=== PATIENT | female | born 1970 | race Caucasian/White ===

== ENCOUNTER 2018-01-19 21:35 | Emergency (ER) | payer BC ==
[2018-01-20] MEDS ORDERED: Ondansetron INJ* 2 MG/ML VIAL IV ONE (01:41)
[2018-01-20] MEDS ORDERED: Ketorolac INJ* 30 MG/ML 1 ML VIAL IV PUSH ONE (01:41)
[2018-01-20 01:42] LABS: ABS Basophils 0.1 10^3/ul (0-0.2); ABS Eosinophils 0 10^3/ul (0-0.6); ABS Lymphocytes 1.8 10^3/ul (1.0-4.8); ABS Monocytes 1.1 10^3/ul (0-0.8); ABS Neutrophils 7.6 10^3/ul (1.5-7.7); ABS Nucleated RBC 0 10^3/ul; Eosinophil % 0.2 % (0-6); Hematocrit 36 % (35-47); Lymphocyte % 16.6 % (25-47); Mean Corpuscular HGB Conc 31 g/dl (31-36); Mean Corpuscular Hemoglobin 25 pg (27-31); Mean Corpuscular Volume 81 fL (80-97); Mean Platelet Volume 8 um3 (7.4-10.4); Nucleated Red Blood Cells % 0.1; Platelet Count 406 10^3/ul (150-450); Red Blood Count 4.38 10^6/ul (4.0-5.4); Red Cell Distribution Width 23 % (10.5-15); White Blood Count 10.6 10^3/ul (3.5-10.8)
[2018-01-20 01:43] LABS: EGFR Non-African American 74.7 (>60)
[2018-01-20] MEDS ORDERED: Iohexol 300* (CONTRAST) 10 ML SDV IV ONE (02:06)
[2018-01-20 04:06] VITALS: BP 118/71
--- NOTE | 2018-01-20 06:08 | ED ---
Hanny Castillo Nilda, scribed for Chester Ray MD on 01/20/18 at 0243 . Abdominal Pain/Female - HPI Summary HPI Summary: This patient is a 47 year old F presenting to [facility] with a chief complaint of constant diffuse abdominal pain and bloating for the past 6 days that worsened last night. The patient rates the pain 4/10 in severity. Symptoms aggravated and alleviated by nothing. Patient reports nausea, intermittent mild edema (not currently present), and recent menstrual spotting. Patient denies abnormal BM, fever, and dysuria. Allergies to Cephalexin and Meperidine. - History of Current Complaint Chief Complaint: EDAbdPain Stated Complaint: ABD PAIN Time Seen by Provider: 01/20/18 01:36 Hx Obtained From: Patient Hx Last Menstrual Period: May 04 Onset/Duration: Sudden Onset, Lasting Days, Still Present Timing: Constant Severity Currently: Moderate Pain Intensity: 4 Pain Scale Used: 0-10 Numeric Location: Diffuse Aggravating Factor(s): Nothing Alleviating Factor(s): Nothing Associated Signs and Symptoms: Positive: Other: - nausea, intermittent mild edema (not currently present), and recent menstrual spotting. Patient denies abnormal BM, fever, and dysuria. Allergies/Adverse Reactions: Allergies Allergy/AdvReac Type Severity Reaction Status Date / Time MS Cephalexin [Cephalexin] Allergy Nausea And Verified 01/19/18 22:16 Vomiting MS Meperidine Allergy Unknown Verified 01/19/18 22:16 [From Demerol HCl] Reaction Details bee stings Allergy Mild Difficulty Uncoded 01/19/18 22:16 Breathing PMH/Surg Hx/FS Hx/Imm Hx Endocrine/Hematology History: Reports: Other Endocrine/Hematological Disorders - Parathyroidectomy Denies: Hx Diabetes, Hx Systemic Lupus Erythematosus, Hx Sickle Cell Disease , Hx Thyroid Disease Cardiovascular History: Reports: Hx Hypertension Denies: Hx Congestive Heart Failure, Other Cardiovascular Problems/Disorders Respiratory History: Denies: Hx Asthma, Hx Chronic Obstructive Pulmonary Disease (COPD) GI History: Reports: Hx Gastroesophageal Reflux Disease, Hx Hiatal Hernia, Other GI Disorders - 2 weeks ago ruq pain " stabbing" ,us neg per pt,? hernia per pt Denies: Hx Ulcer History: Reports: Hx Kidney Stones, Hx Renal Disease - stones resolved, Other Problems/Disorders - stones resolved per pt Denies: Hx Dialysis Musculoskeletal History: Denies: Hx Rheumatoid Arthritis, Hx Osteoporosis, Other Musculoskeletal History Sensory History: Denies: Hx Contacts or Glasses, Hx Hearing Aid Opthamlomology History: Denies: Hx Contacts or Glasses Neurological History: Denies: Other Neuro Impairments/Disorders - Cancer History Hx Chemotherapy: No Hx Radiation Therapy: No - Surgical History Surgery Procedure, Year, and Place: tubal;. cyst removed from throat;. Renal stent;. Parathyroidectomy;. wisdom teeth Hx Anesthesia Reactions: No Infectious Disease History: No Infectious Disease History: Denies: Hx Clostridium Difficile, Hx Hepatitis, Hx Human Immunodeficiency Virus (HIV), Hx of Known/Suspected MRSA, Hx Shingles, Hx Tuberculosis, History Other Infectious Disease, Traveled Outside the [place] in Last 30 Days - Family History Known Family History: Positive: Other - negative ovarian and endometrium issues - Social History Alcohol Use: Rare Substance Use Type: Reports: None Smoking Status (MU): Light Every Day Tobacco Smoker Type: Cigarettes Amount Used/How Often: 5 cigs/day Length of Time of Smoking/Using Tobacco: 22 years Have You Smoked in the Last Year: Yes Review of Systems Negative: Fever Positive: Abdominal Pain - with bloating, Nausea, Other - negative abnormal BM Positive: other - recent menstrual spotting. Negative: dysuria Positive: Edema All Other Systems Reviewed And Are Negative: Yes Physical Exam - Summary Physical Exam Summary: Appearance: Well appearing, no pain distress, morbidly obese Skin: warm, dry, reflects adequate perfusion, Hirsute Head/face: normal Eyes: EOMI, LORNA ENT: normal Neck: supple, non-tender Respiratory: Fine wheeze in right base Cardiovascular: RRR, pulses symmetrical Abdomen: non-tender, soft, no masses Bowel sounds: present Back: No CVA tenderness Musculoskeletal: normal, strength/ROM intact Neuro: normal, sensory motor intact, A&Ox3 Triage Information Reviewed: Yes Vital Signs On Initial Exam: Initial Vitals Temp Pulse Resp BP Pulse Ox 98.5 F 106 16 155/103 98 01/19/18 22:10 01/19/18 22:10 01/19/18 22:10 01/19/18 22:10 01/19/18 22:10 Vital Signs Reviewed: Yes Diagnostics - Vital Signs Vital Signs Temp Pulse Resp BP Pulse Ox 01/20/18 01:12 92 17 165/93 97 01/20/18 01:00 98 18 165/93 97 01/20/18 00:15 98.1 F 100 16 148/97 97 01/19/18 22:10 98.5 F 106 16 155/103 98 - Laboratory Lab Results: Lab Results 01/20/18 01/20/18 01/20/18 Range/Units 01:05 01:05 01:05 WBC 10.6 (3.5-10.8) 10^3/ul RBC 4.38 (4.0-5.4) 10^6/ul Hgb 11.0 L (12.0-16.0) g/dl Hct 36 (35-47) % MCV 81 (80-97) fL MCH 25 L (27-31) pg MCHC 31 (31-36) g/dl RDW 23 H (10.5-15) % Plt Count 406 (150-450) 10^3/ul MPV 8 (7.4-10.4) um3 Neut % (Auto) 71.6 (38-83) % Lymph % (Auto) 16.6 L (25-47) % [place] % (Auto) 10.4 H (1-9) % Eos % (Auto) 0.2 (0-6) % Baso % (Auto) 1.2 (0-2) % Absolute Neuts (auto) 7.6 (1.5-7.7) 10^3/ul Absolute Lymphs (auto) 1.8 (1.0-4.8) 10^3/ul Absolute Monos (auto) 1.1 H (0-0.8) 10^3/ul Absolute Eos (auto) 0 (0-0.6) 10^3/ul Absolute Basos (auto) 0.1 (0-0.2) 10^3/ul Absolute Nucleated RBC 0 10^3/ul Nucleated RBC % 0.1 Sodium 132 L (133-145) mmol/L Potassium 3.2 L (3.5-5.0) mmol/L Chloride 92 L (101-111) mmol/L Carbon Dioxide 25 (22-32) mmol/L Anion Gap 15 H (2-11) mmol/L BUN 7 (6-24) mg/dL Creatinine 0.82 (0.51-0.95) mg/dL Est GFR ( Amer) 96.1 (>60) Est GFR (Non-Af Amer) 74.7 (>60) BUN/Creatinine Ratio 8.5 (8-20) Glucose 93 (70-100) mg/dL Lactic Acid 1.1 (0.5-2.0) mmol/L Calcium 9.7 (8.6-10.3) mg/dL Total Bilirubin 1.10 H (0.2-1.0) mg/dL AST 156 H (13-39) U/L ALT 88 H (7-52) U/L Alkaline Phosphatase 179 H (34-104) U/L C-Reactive Protein 9.79 H (< 5.00) mg/L Total Protein 8.6 (6.4-8.9) g/dL Albumin 4.1 (3.2-5.2) g/dL Globulin 4.5 H (2-4) g/dL Albumin/Globulin Ratio 0.9 L (1-3) Lipase 56 (11.0-82.0) U/L Result Diagrams: 01/20/18 01:05 01/20/18 01:05 Lab Statement: Any lab studies that have been ordered have been reviewed, and results considered in the medical decision making process. - CT Abd/Pel CT Interpretation Completed By: Radiologist - CT Abd/Pel, per radiologist, reveals no bowel obstruction, free air, or free fluid. Negative for diverticulitis or colitis. Normal appendix. No fatty infiltration of the hannah of the terminal ileum and cecum. Hiatal hernia noted. Normal kidneys urinary tract and urinary bladder. Enlarged fatty liver. Liver was not fatty on the prior scan. Normal spleen. No obvious gallbladder abnormalities. Normal pancreas. Normal adrenal glands. There is a 2.7 cm left adnexal cyst. Clump of left adnexal calcium is noted and was present previously. Osseous structures are intact. Dr. Ray has reviewed this report. Re-Evaluation - Re-Evaluation First Eval Re-Evaluation Time: 03:50 Comment: Reviewed labs with pt. Liver enzymes are elevated. Pt states shes a regular wine drinker and had big drinking weekend, and has felt this way ever since. Pt is shocked and states she will stop drinking. Liver findings is consistent with alcoholic hepatitis. Abdominal Pain Fem Course/Dx - Course Course Of Treatment: Liver enzymes are elevated. On re-eval, pt states shes a regular wine drinker and had big drinking weekend, and has felt this way ever since. Pt is shocked and states she will stop drinking. Liver findings are consistent with alcoholic hepatitis. CT Abd/Pel, per radiologist, reveals enlarged fatty liver. Dr. Ray has reviewed this report. - Diagnoses Differential Diagnosis: Positive: Appendicitis, Bowel Obstruction, Constipation , Gall Bladder Disease, Irritable Bowel Syndrome, Pancreatitis Provider Diagnoses: Alcoholic hepatitis, Fatty liver Discharge - Discharge Plan Condition: Good Disposition: HOME Prescriptions: Hyoscyamine Sulfate 0.125 mg PO TID PRN #40 tab.rapdis PRN Reason: cramping Metoclopramide TAB* [Reglan TAB*] 10 mg PO Q6H #40 tab Patient Education Materials: Alcoholic Hepatitis (ED) Referrals: Tabby Borrego NP [Primary Care Provider] - Additional Instructions: STOP drinking immediately. Call your doctor in the morning. You will need following of your liver enzymes, additional testing and likely a gallbladder ultrasound. Return if worse, pain, vomiting or other concerns as discussed. The documentation as recorded by the Hanny ayers Nilda accurately reflects the service I personally performed and the decisions made by me, Chester Ray MD.
--- NOTE | 2018-01-20 08:09 | RAD ---
INDICATION: Perimenopausal abdominal distention and fullness. COMPARISON: Comparison is made with a prior study from every 2013. TECHNIQUE: A CT scan of the abdomen and pelvis was performed with intravenous and without oral contrast following intravenous injection of 125 ml of Omnipaque 300 nonionic contrast. Contiguous axial sections were obtained from the lung bases through the symphysis pubis. Images were reconstructed in the coronal and sagittal planes. FINDINGS: The lung bases are clear. No pleural effusion is present. The liver is moderately enlarged and decreased in attenuation consistent with fatty infiltration. No calcified gallstones are seen. The spleen appears to be within normal limits in size. The pancreas appears to be within normal limits. The kidneys and adrenal glands are normal in size. No hydronephrosis is seen. No significant focal renal abnormality is seen. The aorta is normal in caliber and demonstrates homogeneous contrast opacification. No significant enlarged retroperitoneal lymph nodes are seen. There is a moderate size hiatal hernia. The stomach, small and large bowel appear nondistended. The appendix is within normal limits. There is mild descending and sigmoid diverticulosis without evidence for diverticulitis. The uterus is anteverted and normal in size. There are bilateral adnexal cysts measuring 2.3 x 1.7 cm on the right and 2.8 x 2.0 cm on the left. There are coarse calcifications associated with the ovary laterally which are unchanged from the prior study. No free intraperitoneal air or fluid is seen. No significant focal osseous abnormality is seen. IMPRESSION: 1. NO EVIDENCE FOR ACUTE FINDING OR CAUSE FOR THE PATIENT'S ABDOMINAL SYMPTOMS. 2. HEPATOMEGALY AND HEPATIC STEATOSIS. 3. BILATERAL ADNEXAL CYSTS. THE OVARY ON THE LEFT SIDE IS ASSOCIATED WITH AN AREA OF COARSE CALCIFICATION WHICH APPEARS UNCHANGED FROM THE PRIOR STUDY. 4. MODERATE SIZE HIATAL HERNIA.
== END 2018-01-20 04:06 | disposition home or self-care (01) ==
LOC: ED 21:35
DX: K70.10 Alcoholic hepatitis without ascites (principal); K76.0 Fatty (change of) liver, not elsewhere classified; F17.210 Nicotine dependence, cigarettes, uncomplicated
CPT/HCPCS: 36415; 74177; 80053; 83605; 83690; 84702; 85025; 86140; 87040; 96374; 96375; 99283; J1885; J2405; Q9967

== ENCOUNTER 2018-02-16 08:07 | Emergency (ER) | payer BC ==
--- OUTSIDE RECORDS SUMMARY | 2018-02-16 08:13 | XMS REPORT ---
:1970 External Reference #:[id number] Author Organization [employer] Address [address] [address] Phone [phone] Care Team Providers Name Role Phone Cindy Rob MD Primary Care Physician Unavailable Payers Type Date Identification Numbers Payment Provider Subscriber Commercial Effective: Policy Number: [id number] BS James Oliver 2013 Expires: 2017 PayID: [id number] [address] [address] JIMI Norris [address] Commercial Effective: Policy Number: [employer] Medicaid Violette Oliver 2013 [id number] Expires: 2015 PayID: [id number] [address] [address] [place] [address] Medigap Part B Policy Number: [id number] BS Facets Ty Oliver PayID: [id number] [address] [address] JIMI Norris [address] Problems Date Description Provider Status Onset: 10/12/2013 Electrocardiogram abnormal Tomy Bailey M.D. Onset: 10/12/2013 Preoperative cardiovascular Tomy Bailey examination Jonel Onset: 10/12/2013 Benign essential hypertension Tomy Bailey M.D. Onset: 10/12/2013 Obesity Tomy Bailey M.D. Onset: 03/28/2016 Essential hypertension Natty Fontana M.D. Active Onset: 04/29/2016 Irregular menstruation, unspecified Natty Fontana M.D. Active Onset: 04/29/2016 Anemia Natty Fontana M.D. Active Onset: 04/29/2016 Tobacco user Natty Fontana M.D. Active Onset: 04/29/2016 Anxiety state Natty Fontana M.D. Active Family History Date Family Member(s) Problem(s) Comments Father Alive And Well Mother PA Mother cath with stents First Son Aortic Stenosis First Son Hyperthyroidism First Son leasions on brain autism, bipolar Second Son Alive And Well First Daughter Alive And Well Siblings 5 siblings brother with HTN, all others healthy Paternal Grandfather due to brain () - aneurysm Paternal Grandmother due to Alzheimer's () Disease Maternal Grandfather due to Stroke () Maternal Grandmother 97 live on own Social History Type Date Description Comments Marital Status Lives With Children Lives With Spouse 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 every day ETOH Use Rarely consumes alcohol Recreational Drug Use Current Drug User occ, at [employer] Pot Smoking Patient is a current smoker, smokes every day Daily Caffeine Consumes on average 3 cups of regular coffee per day Exercise Type/Frequency Exercises regularly 5 times a week Allergies, Adverse Reactions, Alerts Date Description Reaction Status Severity Comments 10/11/2013 Demerol loss of hearing and vision active 03/28/2016 Ciprofloxacin active Medications Medication Date Status Form Strength Qnty SIG Indications Ordering Provider Celecoxib 02/02/ Active Capsules 200mg 30caps 1 by M54.5 Tabby 2017 mouth Varn, N.P. every day Fluticasone 12/02/ Active Suspension 50mcg/Act 16unit 2 sprays R42 Mic Propionate 2018 s each MATIAS Foreman nostril qd. Trazodone HCL 06/27/ Active Tablets 50mg 30tabs ( Not Tabby 2015 Taking) 1 Varn, N.P. tablet at bedtime as needed Bupropion HCL 03/28/ Active Tablets ER 150mg 30tabs (Not F17.210 Tabby ER (SR) 2015 12HR Taking) 1 Varn, N.P. by mouth once a day Atenolol 03/28/ Active Tablets 50mg 30tabs 1 by Mic 2015 mouth MATIAS Foreman every day Claritin / Active Capsules 10mg 30caps 1 tablet Tabby 0000 daily as Varn, N.P. needed Omeprazole / Active Capsules DR 40mg 30caps 1 by Tabby 0000 mouth Varn, N.P. every day Multi Vitamin 00/ Active Tablets 30tabs one po Tabby Daily 0000 daily Varn, N.P. Ventolin HFA / Active Aerosol 108(90Base 8gm inhale Cindy 0000 ) mcg/Act two puffs Cotton, by mouth M.D. four times a day as needed Potassium 12/11/ Hx Tablets ER 20Meq 14tabs 1 by Mic Chloride ER 2017 - mouth MATIAS Foreman 02/02/ every day 2018 x 2 weeks Amoxicillin/C 12/02/ Hx Tablets 875-125mg 20tabs take one J01.90 Mic lavulanate 2017 - tablet MATIAS Foreman Potassium 12/12/ q12 hours 2018 for 10 days Vitamin D3 04/22/ Hx Capsules 40690Goni 8caps 1 tab by Natty 2015 - mouth Fontana, 02/02/ once per M.D. 2018 week, 8 weeks, then follow up for blood test Atenolol / Hx Tablets 25mg 90tabs 1 po qd Unknown 0000 - 2015 Nasacort / Hx Aerosol 55mcg/Act 10.800 1 spray Tabby Allergy 24HR 0000 - ml both Varn, N.P. 2017 once daily Vital Signs Date Vital Result Comment 02/02/2018 Weight 204.50 lb Heart Rate 89 /min BP Systolic 134 mmHg BP Diastolic 80 mmHg Body Temperature 99.4 F O2 % BldC Oximetry 93 % 12/02/2017 Height 61 inches 5'1" Weight 208.00 lb Heart Rate 92 /min BP Systolic 130 mmHg BP Diastolic 90 mmHg Body Temperature 97.6 F O2 % BldC Oximetry 97 % BMI (Body Mass Index) 39.3 kg/m2 06/04/2016 Weight 226.00 lb Heart Rate 74 /min BP Systolic Sitting 126 mmHg BP Diastolic Sitting 84 mmHg Respiratory Rate 15 /min Body Temperature 98.0 F O2 % BldC Oximetry 98 % 03/28/2016 Weight 235.00 lb Heart Rate 76 /min BP Systolic Sitting 157 mmHg BP Diastolic Sitting 100 mmHg Body Temperature 98.5 F 10/12/2013 Height 61 inches 5'1" Weight 205.00 lb Heart Rate 84 /min BP Systolic Sitting 130 mmHg BP Diastolic Sitting 84 mmHg Respiratory Rate 20 /min BMI (Body Mass Index) 38.7 kg/m2 Results Test Date Test Result H/L Range Note Laboratory test finding 01/20/2018 Blood Culture SEE RESULT BELOW 1 Comp Metabolic Panel 01/20/2018 Sodium 132 mmol/L Low 133-145 Potassium 3.2 mmol/L Low 3.5-5.0 Chloride 92 mmol/L Low 101-111 Co2 Carbon Dioxide 25 mmol/L 22-32 Anion Gap 15 mmol/L High 2-11 Glucose 93 mg/dL 70-100 Blood Urea Nitrogen 7 mg/dL 6-24 Creatinine 0.82 mg/dL 0.51-0.95 BUN/Creatinine Ratio 8.5 8-20 Calcium 9.7 mg/dL 8.6-10.3 Total Protein 8.6 g/dL 6.4-8.9 Albumin 4.1 g/dL 3.2-5.2 Globulin 4.5 g/dL High 2-4 Albumin/Globulin Ratio 0.9 Low 1-3 Total Bilirubin 1.10 mg/dL High 0.2-1.0 Alkaline Phosphatase 179 U/L High 34-104 Alt 88 U/L High 7-52 Ast 156 U/L High 13-39 Egfr Non- 74.7 >60 Egfr 96.1 >60 2 Laboratory test finding 01/20/2018 Lipase 56 U/L 11.0-82.0 C Reactive Protein 9.79 mg/L High < 5.00 3 CBC Auto Diff 01/20/2018 White Blood Count 10.6 10^3/uL 3.5-10.8 Red Blood Count 4.38 10^6/uL 4.0-5.4 Hemoglobin 11.0 g/dL Low 12.0-16.0 Hematocrit 36 % 35-47 Mean Corpuscular Volume 81 fL 80-97 Mean Corpuscular Hemoglobin 25 pg Low 27-31 Mean Corpuscular HGB Conc 31 g/dL 31-36 Red Cell Distribution Width 23 % High 10.5-15 4 Platelet Count 406 10^3/uL 150-450 Mean Platelet Volume 8 um3 7.4-10.4 Abs Neutrophils 7.6 10^3/uL 1.5-7.7 Abs Lymphocytes 1.8 10^3/uL 1.0-4.8 Abs Monocytes 1.1 10^3/uL High 0-0.8 Abs Eosinophils 0 10^3/uL 0-0.6 Abs Basophils 0.1 10^3/uL 0-0.2 Abs Nucleated RBC 0 10^3/uL Granulocyte % 71.6 % 38-83 Lymphocyte % 16.6 % Low 25-47 Monocyte % 10.4 % High 1-9 Eosinophil % 0.2 % 0-6 Basophil % 1.2 % 0-2 Nucleated Red Blood Cells % 0.1 Laboratory test finding 01/20/2018 Lactic Acid 1.1 mmol/L 0.5-2.0 5 HCG < 0.60 mIU/mL 6 Urine Culture And Sensitivities 12/07/2017 Urine Culture SEE RESULT BELOW 7 Laboratory test finding 12/07/2017 Pathologist Review (SEE NOTE) 8 Cell Morphology 12/07/2017 Anisocytosis 1+ Target Cells 1+ Stomatocytes 3+ Urinalysis Profile 12/07/2017 Urine Color Raegan Urine Appearance Cloudy Urine Specific [place] 1.015 1.010-1.030 Urine pH 6.0 5-9 Urine Urobilinogen Positive Negative Urine Ketones 1+ Negative Urine Protein 2+(100 mg/dL) Negative Urine Leukocytes 1+ Negative Urine Blood Negative Negative Urine Nitrite Negative Negative Urine Bilirubin 1+ Negative Urine Glucose 1+(50 mg/dL) Negative Urine White Blood Cell 2+(11-20/hpf) Absent Urine Red Blood Cell 2+(6-10/hpf) Absent Urine Bacteria Absent Absent Urine Squamous Epithelial Cell Present Absent Urine Transitional Epithelial Present Absent Urine Hyaline Casts Present Absent Lipid Profile (Trig/Chol/HDL) 12/07/2017 Triglycerides 105 mg/dL 9 Cholesterol 173 mg/dL 10 HDL Cholesterol 49.3 mg/dL 11 LDL Cholesterol 103 mg/dL 12 Laboratory test finding 12/07/2017 TSH (Thyroid Stim 2.60 mcIU/mL 0.34- 5.60 13 Horm) Comp Metabolic Panel 12/07/2017 Sodium 132 mmol/L Low 133-145 Potassium 3.0 mmol/L Low 3.5-5.0 Chloride 86 mmol/L Low 101-111 Co2 Carbon Dioxide 31 mmol/L 22-32 Anion Gap 15 mmol/L High 2-11 Glucose 97 mg/dL 70-100 Blood Urea Nitrogen 7 mg/dL 6-24 Creatinine 0.53 mg/dL 0.51-0.95 BUN/Creatinine Ratio 13.2 8-20 Calcium 9.4 mg/dL 8.6-10.3 Total Protein 7.4 g/dL 6.4-8.9 Albumin 3.8 g/dL 3.2-5.2 Globulin 3.6 g/dL 2-4 Albumin/Globulin Ratio 1.1 1-3 Total Bilirubin 1.40 mg/dL High 0.2-1.0 Alkaline Phosphatase 217 U/L High 34-104 Alt 45 U/L 7-52 Ast 142 U/L High 13-39 Egfr Non- 123.6 >60 Egfr 159.0 >60 14 CBC Auto Diff 12/07/2017 White Blood Count 11.3 10^3/uL High 3.5-10.8 Red Blood Count 4.70 10^6/uL 4.0-5.4 Hemoglobin 11.6 g/dL Low 12.0-16.0 Hematocrit 38 % 35-47 Mean Corpuscular Volume 80 fL 80-97 Mean Corpuscular Hemoglobin 25 pg Low 27-31 Mean Corpuscular HGB Conc 31 g/dL 31-36 Red Cell Distribution Width 27 % High 10.5-15 Platelet Count 423 10^3/uL 150-450 Mean Platelet Volume 8 um3 7.4-10.4 Abs Neutrophils 9.2 10^3/uL High 1.5-7.7 Abs Lymphocytes 1.3 10^3/uL 1.0-4.8 Abs Monocytes 0.7 10^3/uL 0-0.8 Abs Eosinophils 0.1 10^3/uL 0-0.6 Abs Basophils 0 10^3/uL 0-0.2 Abs Nucleated RBC 0 10^3/uL Granulocyte % 81.5 % 38-83 Lymphocyte % 11.2 % Low 25-47 Monocyte % 6.6 % 1-9 Eosinophil % 0.6 % 0-6 Basophil % 0.1 % 0-2 Nucleated Red Blood Cells % 0.1 Laboratory test finding 04/22/2016 Vitamin D Total 25(Oh) 11.9 ng/mL Low 30-50 Comp Metabolic Panel 04/22/2016 Sodium 138 mmol/L 133-145 Potassium 3.7 mmol/L 3.5-5.0 Chloride 103 mmol/L 101-111 Co2 Carbon Dioxide 26 mmol/L 22-32 Anion Gap 9 mmol/L 2-11 Glucose 99 mg/dL 70-100 Blood Urea Nitrogen 8 mg/dL 6-24 Creatinine 0.89 mg/dL 0.51-0.95 BUN/Creatinine Ratio 9.0 8-20 Calcium 9.4 mg/dL 8.6-10.3 Total Protein 7.2 g/dL 6.4-8.9 Albumin 4.0 g/dL 3.2-5.2 Globulin 3.2 g/dL 2-4 Albumin/Globulin Ratio 1.3 1-3 Total Bilirubin 0.60 mg/dL 0.2-1.0 Alkaline Phosphatase 83 U/L 34-104 Alt 29 U/L 7-52 Ast 28 U/L 13-39 Egfr Non- 68.6 >60 Egfr 88.2 >60 15 Lipid Profile (Trig/Chol/HDL) 04/22/2016 Triglycerides 125 mg/dL 16 Cholesterol 160 mg/dL 17 HDL Cholesterol 40.5 mg/dL 18 LDL Cholesterol 95 mg/dL 19 CBC Auto Diff 04/22/2016 White Blood Count 7.3 10^3/uL 3.5-10.8 Red Blood Count 5.05 10^6/uL 4.0-5.4 Hemoglobin 12.5 g/dL 12.0-16.0 Hematocrit 40 % 35-47 Mean Corpuscular Volume 79 fL Low 80-97 Mean Corpuscular Hemoglobin 25 pg Low 27-31 Mean Corpuscular HGB Conc 31 g/dL 31-36 Red Cell Distribution Width 19 % High 10.5-15 Platelet Count 323 10^3/uL 150-450 Mean Platelet Volume 9 um3 7.4-10.4 Abs Neutrophils 5.1 10^3/uL 1.5-7.7 Abs Lymphocytes 1.4 10^3/uL 1.0-4.8 Abs Monocytes 0.7 10^3/uL 0-0.8 Abs Eosinophils 0.1 10^3/uL 0-0.6 Abs Basophils 0.1 10^3/uL 0-0.2 Abs Nucleated RBC 0.01 10^3/uL Granulocyte % 70.1 % 38-83 Lymphocyte % 18.5 % Low 25-47 Monocyte % 9.0 % 1-9 Eosinophil % 1.2 % 0-6 Basophil % 1.2 % 0-2 Nucleated Red Blood Cells % 0.1 Laboratory test finding 04/22/2016 TSH (Thyroid Stim Horm) 2.69 ?IU/mL 0.34-5.60 Free T4 (Free Thyroxine) 0.94 ng/dL 0.61-1.12 1 SEE RESULT BELOW Name: VIOLETTE OLIVER : [address]: Chester Ray MD Acct: [id number] Unit: [id number] AGE: 47 Location: ED Re01/19/18 SEX: F Status: DEP ER SPEC: [id number] ANTONIA: 01/20/18-[address]: Brandy BARRERA REQ: [id number] RECD: 01/20/18 STATUS: ZAY VARGAS DR: Chester Borrego BARK TANNER _ SOURCE: BLOOD,VENO SPDESC: ORDERED: Blood Cult Procedure Result Reported Site Aerobic Culture Bottle Final 01/25/18- 0145 ML No Growth Day 5 Anaerobic Culture Bottle Final 01/25/18- 0142 ML No Growth Day 5 * ML - MAIN LAB ([facility]) . END OF REPORT * ML=Testing performed at Main Lab DEPARTMENT OF PATHOLOGY, [address] [place] [address] Jamie Gustafson M.D. Director [facility] # [id number] 2 Because ethnic data is not always readily available, this report includes an eGFR for both -Americans and non- Americans. The National Kidney Disease Education Program (NKDEP) does not endorse the use of the MDRD equation for patients that are not between the ages of 18 and 70, are , have extremes of body size, muscle mass, or nutritional status, or are non- or non-. According to the National Kidney Foundation, irrespective of diagnosis, the stage of the disease is based on the level of kidney function: Stage Description GFR(mL/min/1.73 m(2)) 1 Kidney damage with normal or decreased GFR 90 2 Kidney damage with mild decrease in GFR 60-89 3 Moderate decrease in GFR 30-59 4 Severe decrease in GFR 15-29 5 Kidney failure <15 (or dialysis) 3 Acute inflammation: >10.00 4 Consistent with Previous Results Reported on 12/07/17 5 [facility] Severe Sepsis and Septic Shock Management Bundle Measure requires all lactic acids initially measuring >2.0 mmol/L be repeated. 6 <5.0 Negative 5.0 - 25.0 Indeterminate (Repeat testing recommended after 72 hours) >25.0 Positive Perimenopausal women can display HCG levels of up to 20 mIU/mL 7 SEE RESULT BELOW Name: VIOLETTE OLIVER : [address]: Mic Foreman NP Acct: [id number] Unit: [id number] AGE: 47 Location: [facility] Re12/07/17 SEX: F Status: REG REF SPEC: [id number] ANTONIA: 12/07/[address]: Mic Foreman NP REQ: [id number] RECD: 12/07/17 STATUS: COMP _ SOURCE: URINE SPDESC: ORDERED: Urine Culture Procedure Result Reported Site Urine Culture Final 12/09/17- 717 ML Organism 1 ESCHERICHIA COLI [place] Count 1-10,000 (Few) CFU/ML Organism 2 NORMAL EDOUARD [place] Count 25-50,000 (Moderate) CFU/ML 1. ESCHERICHIA COLI [facility]. RX --------- ------ Ampicillin 4 S Cefazolin <=4 S Cefepime <=1 S Ceftriaxone <=1 S Ciprofloxacin <=0.25 S Gentamicin <=1 S Levofloxacin <=0.12 S Meropenem <=0.25 S Nitrofurantoin <=16 S Tetracycline <=1 S Pipercillin/Tazobactam <=4 S Trimethoprim/Sulfamethoxazole <=20 S Amoxicillin/Clavulanic Acid <=2 S Aztreonam <=1 S Contact the Microbiology Department for any additional antibiotic reporting. * ML - MAIN LAB ([facility]) . END OF REPORT * ML=Testing performed at Main Lab DEPARTMENT OF PATHOLOGY, [address] [place] [address] Jamie Gustafson M.D. Director [facility] # [id number] 8 Leukocytosis with absolute neutrophilia indicative of acute inflammatory/reactive process. Mild anemia with red cell indices suggestive of iron deficiency. Additional studies as clinically warranted. Reviewed by Dr. Gustafson 9 Desirable: <150 Borderline High: 150-199 High: 200-499 Very High: >500 10 Desirable: <200 Borderline High: 200-239 High: >239 11 Low: <40 Desirable: 40-60 High: >60 12 Desirable: <100 Near Optimal: 100-129 Borderline High: 130-159 High: 160-189 Very High: >189 13 FASTING 10 HOUR 14 Because ethnic data is not always readily available, this report includes an eGFR for both -Americans and non- Americans. The National Kidney Disease Education Program (NKDEP) does not endorse the use of the MDRD equation for patients that are not between the ages of 18 and 70, are , have extremes of body size, muscle mass, or nutritional status, or are non- or non-. According to the National Kidney Foundation, irrespective of diagnosis, the stage of the disease is based on the level of kidney function: Stage Description GFR(mL/min/1.73 m(2)) 1 Kidney damage with normal or decreased GFR 90 2 Kidney damage with mild decrease in GFR 60-89 3 Moderate decrease in GFR 30-59 4 Severe decrease in GFR 15-29 5 Kidney failure <15 (or dialysis) 15 Because ethnic data is not always readily available, this report includes an eGFR for both -Americans and non- Americans. The National Kidney Disease Education Program (NKDEP) does not endorse the use of the MDRD equation for patients that are not between the ages of 18 and 70, are , have extremes of body size, muscle mass, or nutritional status, or are non- or non-. According to the National Kidney Foundation, irrespective of diagnosis, the stage of the disease is based on the level of kidney function: Stage Description GFR(mL/min/1.73 m(2)) 1 Kidney damage with normal or decreased GFR 90 2 Kidney damage with mild decrease in GFR 60-89 3 Moderate decrease in GFR 30-59 4 Severe decrease in GFR 15-29 5 Kidney failure <15 (or dialysis) 16 Desirable <150 Borderline high 150-199 High 200-499 Very High >500 17 Desirable <200 Borderline high 200-239 High >239 18 Low <40 Desirable: 40-60 High: >60 19 Desirable: <100 mg/dL Near Optimal: 100-129 mg/dL Borderline High: 130-159 mg/dL High: 160-189 mg/dL Very High: >189 mg/dL Procedures Date CPT Code Description Status 10/13/2013 41972 ECHO Transthoracic, Real-Time 2D With Doppler And Color Completed Flow 10/12/2013 92376 EKG Tracing & Interpretation Completed 10/07/2013 47663 EKG, Interpretation Only Completed Encounters Type Date Location Provider CPT E/M Dx Office Visit 12/02/2017 8:40a [facility] [place] [address] R42 [place] R39.15 Z13.220 J01.90 Office Visit 06/04/2016 3:40p [facility] - Tabby Borrego N.P. [address] I[address] [place] F41.9 E55.9 F17.213 Office Visit 03/28/2016 10:00a [facility] - Natty Fontana M.D. [address] [address] [place] E66.09 F17.210 Z00.01 F41.9 N92.6 Z82.49 D64.9 Office Visit 01/26/2014 9:57a [facility],hazel Esparza M.D. 23679 276.51 Hospitalists 787.01 Office Visit 01/25/2014 9:56a [facility],hazel Esparza M.D. 40574 276.51 Hospitalists 787.01 Office Visit 10/12/2013 4:00p [facility] [place], [address] 794.31 Jonel V72.81 401.1 278.00 Plan of Care Future Appointment(s):02/24/2018 4:00 pm - Tabby Borrego, N.P. at [facility] - [place]68/06/2018 - Tabby Borrego N.P.R74.8 Abnormal levels of other serum enzymesComments:To further evaluate your liver function I have ordered repeat blood work. I will contact you with your results.I urge you to avoid taking Acetaminophen. Tjis is really "hard" on your liver. Be sure toavoid alcohol.N92.6 Irregular menstruation, unspecifiedNew Xrays:US TransvaginalComments:To help evaluate your irregular bleeding I have ordered a transvaginal ultrasound. I will contact you with your results.M54.5 Low back painNew Medication:Celecoxib 200 mgComments:If you do not gradually improve, please contact the office. For your back pain I have prescribed Celebrex 200 mg. Take 1 take daily with a little food.Continue to use heat as needed.Follow up:F/U 3 weeks
[2018-02-16] MEDS ORDERED: Albuterol/Ipratropium NEB.SOL* Albuterol 2.5 MG/Ipratropium 0.5 MG 3 ML INH ONE (09:09)
[2018-02-16] MEDS ORDERED: Ibuprofen TAB* 400 MG PO ONE (09:09)
--- NOTE | 2018-02-16 09:11 | UC ---
Respiratory Complaint HPI - HPI Summary HPI Summary: 47 yo nice lady presents with h/a since thursday (today is thursday), cough, runny nose, sore throat, gi upset (mild), since then. No rash. Feels like everything hurts. No sob perse except with cough. - History of Current Complaint Chief Complaint: UCGeneralIllness Stated Complaint: ACHES, COUGH, AND FEVER Time Seen by Provider: 02/16/18 08:50 Hx Obtained From: Patient Hx Last Menstrual Period: irreg Pain Intensity: 7 - Allergies/Home Medications Allergies/Adverse Reactions: Allergies Allergy/AdvReac Type Severity Reaction Status Date / Time cephalexin [From Keflex] Allergy Rash Verified 02/16/18 08:13 meperidine [From Demerol] Allergy Rash Verified 02/16/18 08:14 bees Allergy anaph Uncoded 02/16/18 08:14 PMH/Surg Hx/FS Hx/Imm Hx Previously Healthy: Yes - however, recently abd / pelvic w/u. + hx htn. Cardiovascular History: Hypertension - Surgical History Surgical History: Yes Surgery Procedure, Year, and Place: tubal;. cyst removed from throat;. Renal stent;. Parathyroidectomy;. wisdom teeth - Family History Known Family History: Positive: Other - negative ovarian and endometrium issues - Social History Alcohol Use: Rare Substance Use Type: None Smoking Status (MU): Light Every Day Tobacco Smoker Type: Cigarettes Amount Used/How Often: 5 cigs/day Length of Time of Smoking/Using Tobacco: 22 years Have You Smoked in the Last Year: Yes - Immunization History Most Recent Influenza Vaccination: 2009 Most Recent Tetanus Shot: unknown Most Recent Pneumonia Vaccination: 2010 Review of Systems Constitutional: Fever Skin: Negative Eyes: Negative ENT: Sore Throat Respiratory: Cough Cardiovascular: Negative Gastrointestinal: Other - queezy Genitourinary: Negative Motor: Negative Neurovascular: Negative Musculoskeletal: Myalgia Neurological: Headache Psychological: Negative Is Patient Immunocompromised?: No All Other Systems Reviewed And Are Negative: Yes Physical Exam Triage Information Reviewed: Yes Appearance: Well-Nourished - looks tired, Nontoxic. NAD. Vital Signs: Initial Vital Signs Temp 100.9 F 02/16/18 08:16 Pulse 105 02/16/18 08:16 Resp 20 02/16/18 08:16 BP 170/116 02/16/18 08:16 Pulse Ox 99 02/16/18 08:16 Eye Exam: Normal ENT Exam: Normal ENT: Positive: Pharyngeal erythema - no sores / exudates appreciated, TM dull Neck exam: Normal Neck: Positive: Supple, Nontender, No Lymphadenopathy Respiratory Exam: Other - BS equal. Scattered exp wheeze. + rhonchorus cough. Respiratory: Positive: No respiratory distress, No accessory muscle use Cardiovascular Exam: Normal Cardiovascular: Positive: RRR, Pulses Normal, Brisk Capillary Refill Abdominal Exam: Normal Abdomen Description: Positive: Nontender Bowel Sounds: Positive: Hyperactive Musculoskeletal Exam: Normal - moves x 4 ext's. gait steady Neurological Exam: Normal - grossly nonfocal Psychological Exam: Normal - conversing easily and appropriately Skin Exam: Normal - no visible or reported rash UC Diagnostic Evaluation - Laboratory O2 Sat by Pulse Oximetry: 99 Respiratory Course/Dx - Course Course Of Treatment: Neb tx x 1, some improvement. reviewed CXR and report with pt. (see meditech). Reviewed influenza result, + "B". Reviewed BP, did decrease but still recommend close f/u PCP. Avoid decongestants. Questions as posed answered to the best of my ability. - Differential Dx/Diagnosis Provider Diagnoses: Influenza B. Wheezing. HTN Discharge - Sign-Out/Discharge Documenting (check all that apply): Discharge - Discharge Plan Condition: Stable Disposition: HOME Prescriptions: Albuterol HFA INHALER* [Ventolin HFA Inhaler*] 1 - 2 puff INH Q4H PRN #1 mdi PRN Reason: Wheezing Oseltamivir CAP* [Tamiflu CAP*] 75 mg PO BID #10 cap Patient Education Materials: Influenza (ED) Referrals: Tabby Borrego NP [Primary Care Provider] - Additional Instructions: Follow up with your primary care physician per routine (next couple weeks). Please seek medical attention for worse or new problems in the meantime. - Billing Disposition and Condition Condition: STABLE Disposition: HOME
--- NOTE | 2018-02-16 10:01 | RAD ---
Indication: Cough, shortness of breath and fever. Comparison is made with previous exam dated January 23, 2014. 2 views of the chest demonstrate no mediastinal shift. Heart is of normal size and configuration. Lung cheney demonstrate no pleural fluid, pneumonia or pneumothorax. IMPRESSION: No active cardiopulmonary disease is noted.
[2018-02-16 10:41] VITALS: BP 158/97
== END 2018-02-16 10:42 | disposition home or self-care (01) ==
LOC: UCEAST 08:07
DX: J10.1 Influenza due to other identified influenza virus with other respiratory manifestations (principal); R06.2 Wheezing; I10 Essential (primary) hypertension; Z88.5 Allergy status to narcotic agent; Z88.1 Allergy status to other antibiotic agents; Z91.030 Bee allergy status; F17.210 Nicotine dependence, cigarettes, uncomplicated
CPT/HCPCS: 71046; 87502; 87651; 99213; A9270-GY; G0463

== ENCOUNTER 2018-04-21 09:06 | Emergency (ER) | payer BC ==
--- OUTSIDE RECORDS SUMMARY | 2018-04-21 09:14 | XMS REPORT ---
:1970 External Reference #:[id number] Author Organization [employer] [facility] Address [address] [place] [address] Phone [phone] Care Team Providers Name Role Phone Tabby Borrego Primary Care Physician Unavailable Payers Type Date Identification Numbers Payment Provider Subscriber Commercial Policy Number: [id number] Juan Francisco BC/BS [facility] Ty Oliver PayID: [id number] [address] [address] [place] [address] Problems Date Description Provider Status Onset: 04/29/2016 Anemia Natty Fontana Active Onset: 04/29/2016 Tobacco user Natty Fontana Active Onset: 04/29/2016 Anxiety state Natty Fontana Active Onset: 03/28/2016 Essential hypertension Natty Fontana Active Onset: 10/12/2013 Electrocardiogram abnormal Ashley Ward MD Active Onset: 10/12/2013 Preoperative cardiovascular Ashley Ward MD Active examination Onset: 10/12/2013 Benign essential hypertension Ashley Ward MD Active Onset: 10/12/2013 Obesity Ashley Ward MD Active Family History Date Family Member(s) Problem(s) Comments Father A&W Mother Heart Disease Mother Hypertension First Son A&W Second Son Mental Illness First Daughter A&W First Brother Hypertension First Sister A&W Second Sister A&W Third Sister A&W Paternal Grandfather due to Aneurysm () Paternal Grandmother due to Alzheimer's Disease () Maternal Grandfather due to Stroke () Maternal Grandmother due to Old Age () Social History Type Date Description Comments Marital Status Lives With Lives With Son Diet Healthy, Well Balanced Cigarette Use Current Cigarette Smoker ETOH Use Rarely consumes alcohol Smoking Patient is a current smoker, smokes every day Recreational Drug Use Denies Drug Use Daily Caffeine Consumes on average 2 cups of coffee per day Exercise Type/Frequency Exercises regularly Seat Belt/Car Seat Always uses seat belt Currently Active Patient is currently sexually active Contraceptive Methods Current methods include tubal ligation STD's No STD History Allergies, Adverse Reactions, Alerts Date Description Reaction Status Severity Comments 03/28/2016 Ciprofloxacin active 10/11/2013 Meperidine loss of hearing and vision active Medications Medication Date Status Form Strength Qnty SIG Indications Ordering Provider [facility] Iron 02/24/ Active Tablets 325(65Fe) 30tabs One po D64.9 Varn, 2018 mg daily Tabby Celecoxib 02/02/ Active Capsules 200mg 60caps 1 by M54.5 Varn, 2018 mouth by Tabby mouth twice a day as needed Atenolol 03/28/ Active Tablets 50mg 30tabs 1 by Unknown 2015 mouth every day Claritin / Active Capsules 10mg 30caps 1 tablet Varn, 0000 daily as Tabby needed Omeprazole / Active Capsules DR 40mg 30caps 1 by Varn, 0000 mouth Tabby every day Ventolin HFA / Active Aerosol 108(90Base 8units inhale Varn, 0000 ) mcg/Act two puffs Tabby by mouth four times a day as needed Fluticasone 12/02/ Hx Suspension 50mcg/Act 16unit 2 sprays R42 Unknown Propionate 2018 - s each 04/14/ nostril 2018 qd. Trazodone HCL 06/27/ Hx Tablets 50mg 30tabs ( Not Varn, 2016 - Taking) 1 Tabby 04/14/ tablet at 2018 bedtime as needed Bupropion HCL 03/28/ Hx Tablets ER 150mg 30tabs (Not F17.210 Varn, ER (SR) 2016 - 12HR Taking) 1 Tabby 04/06/ by mouth 2018 once a day Vital Signs Date Vital Result Comment 04/21/2018 BP Systolic 128 mmHg BP Diastolic 84 mmHg Height 62 inches 5'2" Weight 205.00 lb BMI (Body Mass Index) 37.5 kg/m2 Last Menstrual Period [id number] 3 Parity 3 02/24/2018 BP Systolic 142 mmHg BP Diastolic 84 mmHg Body Temperature 99.9 F Heart Rate 86 /min Weight 202.00 lb 02/02/2018 BP Systolic 134 mmHg BP Diastolic 80 mmHg Body Temperature 99.4 F Heart Rate 89 /min Weight 204.50 lb 12/02/2017 BP Systolic 130 mmHg BP Diastolic 90 mmHg Body Temperature 97.6 F Heart Rate 92 /min Height 61 inches Weight 208.00 lb BMI (Body Mass Index) 39.3 kg/m2 Results Test Date Test Result H/L Range Note Laboratory test finding 02/22/2018 Albumin 3.9 g/dL 3.2-5.2 Albumin/Globulin Ratio 1.0 1 1-3 Alkaline Phosphatase 111 U/L High 34-104 Alt 70 U/L High 7-52 Anion Gap 9 mmol/L 2-11 Ast 112 U/L High 13-39 BUN/Creatinine Ratio 10.9 1 8-20 Blood Urea Nitrogen 6 mg/dL 6-24 Calcium 9.3 mg/dL 8.6-10.3 Chloride 100 mmol/L Low 101-111 Co2 Carbon Dioxide 29 mmol/L 22-32 Creatinine 0.55 mg/dL 0.51-0.95 Egfr 152.4 1 >60 1 Egfr Non- 118.5 1 >60 Globulin 3.8 g/dL 2-4 Glucose 94 mg/dL 70-100 Potassium 3.6 mmol/L 3.5-5.0 Sodium 138 mmol/L 133-145 Total Bilirubin 0.60 mg/dL 0.2-1.0 Total Protein 7.7 g/dL 6.4-8.9 CBC Auto Diff 02/22/2018 Abs Basophils 0.1 10^3/uL 0-0.2 Abs Eosinophils 0.1 10^3/uL 0-0.6 Abs Lymphocytes 2.2 10^3/uL 1.0-4.8 Abs Monocytes 0.7 10^3/uL 0-0.8 Abs Neutrophils 3.7 10^3/uL 1.5-7.7 Abs Nucleated RBC 0 10^3/uL Basophil % 0.9 % 0-2 Eosinophil % 0.8 % 0-6 Granulocyte % 55.1 % 38-83 Hematocrit 35 % 35-47 Hemoglobin 10.7 g/dL Low 12.0-16.0 Lymphocyte % 32.3 % 25-47 Mean Corpuscular HGB Conc 31 g/dL 31-36 Mean Corpuscular Hemoglobin 24 pg Low 27-31 Mean Corpuscular Volume 78 fL Low 80-97 Mean Platelet Volume 8.7 um3 7.4-10.4 Monocyte % 10.9 % High 0-7 Nucleated Red Blood Cells % 0.1 1 Platelet Count 397 10^3/uL 150-450 Red Blood Count 4.48 10^6/uL 4.0-5.4 Red Cell Distribution Width 22 % High 10.5-15 White Blood Count 6.8 10^3/uL 3.5-10.8 Laboratory test finding 02/16/2018 Rapid Strep Molecular Negative Negative 2 Laboratory test finding 02/16/2018 Influenza A Molecular Negative Negative 3 Influenza B Molecular Positive Negative Laboratory test finding 01/20/2018 Blood Culture See Result Below 4 1 Because ethnic data is not always readily [...] 15-29 5 Kidney failure <15 (or dialysis) 2 Philosophy Lecturer: [id number] 3 Philosophy Lecturer: [id number] 4 SEE RESULT BELOW Name: VIOLETTE OLIVER : [address]: Chester aRy MD Acct: [id number] Unit: [id number] AGE: 47 Location: ED Re01/19/18 SEX: F Status: DEP ER SPEC: [id number] ANTONIA: 01/20/[address]: Brandy BARRERA REQ: [id number] RECD: 01/20/18 STATUS: ZAY VARGAS DR: Chester Borrego [facility] NURSE _ SOURCE: BLOOD,VENO SPDESC: ORDERED: Blood Cult Procedure Result Reported Site Aerobic Culture Bottle Final 01/25/18- 0145 ML No Growth Day 5 Anaerobic Culture Bottle Final 01/25/18- 0142 ML No Growth Day 5 * ML - MAIN LAB (PSC1) . END OF REPORT * ML=Testing performed at Main Lab DEPARTMENT OF PATHOLOGY, [address] [place] [address] Jamie Gustafson M.D. Director [facility] # [id number] Procedures Date CPT Code Description Status 11/30/2014 Mammogram Completed Plan of Care No Information Available
[2018-04-21] MEDS ORDERED: Ibuprofen TAB* 600 MG PO ONE (09:38)
--- NOTE | 2018-04-21 10:15 | RAD ---
HISTORY: Fall, finger injury COMPARISONS: None VIEWS: 4, Frontal, lateral, and oblique views of the right hand FINDINGS: BONE DENSITY: Normal. BONES: There is an oblique, slightly displaced fracture of the fifth metacarpal. JOINTS: There is no arthropathy. ALIGNMENT: There is no dislocation. SOFT TISSUES: Unremarkable. OTHER FINDINGS: None. IMPRESSION: OBLIQUE FRACTURE OF THE FIFTH METACARPAL
[2018-04-21] MEDS ORDERED: HYDROcodone/ACETAMIN 5-325 MG* 1 TAB PO ONE (10:25)
--- NOTE | 2018-04-21 10:25 | UC ---
Hand/Wrist HPI - HPI Summary HPI Summary: Patient tripped and fell last night catching fourth and fifth fingers web space of her right hand on a door casing. she has a laceration in the webspace between her fourth and fifth fingers. Pain and swelling in her fifth metacarpal - History Of Current Complaint Chief Complaint: UCLaceration Stated Complaint: FINGER LAC Time Seen by Provider: 04/21/18 10:17 Hx Obtained From: Patient Hx Last Menstrual Period: irreg ?: No Mechanism Of Injury: fall Onset/Duration: Sudden Onset, Lasting Hours Pain Intensity: 7 Pain Scale Used: 0-10 Numeric Character Of Pain: Aching, Throbbing Aggravating Factor(s): Movement Alleviating Factor(s): Rest, Elevation Associated Signs And Symptoms: Positive: Swelling, Bruising Related History: Dominant Hand Right - Allergies/Home Medications Allergies/Adverse Reactions: Allergies Allergy/AdvReac Type Severity Reaction Status Date / Time cephalexin [From Keflex] Allergy Rash Verified 04/21/18 09:22 meperidine [From Demerol] Allergy Rash Verified 04/21/18 09:22 bees Allergy anaph Uncoded 04/21/18 09:22 Home Medications: Home Medications Celecoxib [Celebrex 50 MG CAP] 50 mg PO 04/21/18 [History] Ferrous Sulfate [Iron] 325 mg PO 04/21/18 [History] PMH/Surg Hx/FS Hx/Imm Hx Previously Healthy: No Cardiovascular History: Hypertension GI/ History: Gastroesophageal Reflux - Surgical History Surgical History: Yes Surgery Procedure, Year, and Place: tubal;. cyst removed from throat;. Renal stent;. Parathyroidectomy;. wisdom teeth - Family History Known Family History: Positive: Other - negative ovarian and endometrium issues - Social History Occupation: Employed Full-time Lives: With Family Alcohol Use: Weekly Substance Use Type: None Smoking Status (MU): Light Every Day Tobacco Smoker Type: Cigarettes Amount Used/How Often: 5 cigs/day Length of Time of Smoking/Using Tobacco: 22 years Have You Smoked in the Last Year: Yes - Immunization History Most Recent Influenza Vaccination: 2009 Most Recent Tetanus Shot: upto date in past 5-7 years per patient Most Recent Pneumonia Vaccination: 2010 Review of Systems Constitutional: Negative Skin: Bruising - ulnar acpect of right hand, Other - 2 cm laceration in web space between 4/5 finger right hand Eyes: Negative ENT: Negative Respiratory: Negative Cardiovascular: Negative Gastrointestinal: Negative Genitourinary: Negative Motor: Negative Neurovascular: Negative Musculoskeletal: Arthralgia - right hand Neurological: Negative Psychological: Negative Is Patient Immunocompromised?: No All Other Systems Reviewed And Are Negative: Yes Physical Exam Triage Information Reviewed: Yes Appearance: Well-Appearing, Well-Nourished, Pain Distress Vital Signs: Initial Vital Signs Temp 98.4 F 04/21/18 09:16 Pulse 72 04/21/18 09:16 Resp 18 04/21/18 09:16 BP 170/111 04/21/18 09:16 Pulse Ox 98 04/21/18 09:16 Vital Signs Reviewed: Yes Eye Exam: Normal Eyes: Positive: Conjunctiva Clear ENT Exam: Normal ENT: Positive: Normal ENT inspection, Hearing grossly normal. Negative: Muffled voice, Hoarse voice, Dental tenderness Dental Exam: Normal Neck exam: Normal Neck: Positive: Supple, Nontender Respiratory Exam: Normal Respiratory: Positive: Chest non-tender, No respiratory distress, No accessory muscle use Cardiovascular Exam: Normal Cardiovascular: Positive: RRR, Pulses Normal, Brisk Capillary Refill Musculoskeletal Exam: Other Musculoskeletal: Positive: Strength Limited @ - right hand, ROM Limited @ - right 5th finger, Edema @ - right hand Neurological Exam: Normal Neurological: Positive: Alert, Muscle Tone Normal Psychological Exam: Normal Skin Exam: Normal Skin: Positive: Other - 2 cm laceration 4 mm deep web space of right 4/5 fingers Procedures - Laceration/Wound Repair 1 Location: Other - right hand web space between 4/5 finger Description: Linear Anesthesia: Local, 1.0% - 5ml Length, Depth and Shape: linear, 2 cm long 3 mm deep 2mm wide Betadine Prep?: Yes Irrigated w/ Saline (ccs): 500 Laceration/Wound Explored: clean Closure: Single Layer Suture Type: Nylon Number of Sutures: 8 Layer Closure?: No Sterile Dressing Applied?: Yes Diagnostics - Radiology No standard instances Xray Interpretation: Positive (See Comments) Radiology Interpretation Completed By: ED Physician - Patient Name: EB OLIVER Medical Record#: [id number] Ordering Physician: Calli Gorman MD Acct.#: [id number] : 1970 Age: 47 Sex: F Location: [facility] Exam Date: 04/21/18936 ADM Status: REG ER Order Information: HAND - RIGHT MINIMUM 3 VIEWS Accession Number: [id number] CPT: 38050 HISTORY: Fall, finger injury COMPARISONS: None VIEWS: 4, Frontal, lateral, and oblique views of the right hand FINDINGS: BONE DENSITY: Normal. BONES: There is an oblique, slightly displaced fracture of the fifth metacarpal. JOINTS: There is no arthropathy. ALIGNMENT: There is no dislocation. SOFT TISSUES: Unremarkable. OTHER FINDINGS: None. IMPRESSION: OBLIQUE FRACTURE OF THE FIFTH METACARPAL < Electronically signed by Bharath Watts MD in OV> 04/21/18 1012 Dictated By: Bharath Watts MD Dictated Date/Time: 04/21/18 1012 Transcribed Date/ Time: 04/21/18 1012 Copy to: CC:Calli Gorman MD; [facility]; Tabby Borrego NP Imaging - [facility] Imaging - [facility] Imaging - [facility] [address] [place] [address] ph [phone] ph [phone]) ph ([phone]) 1 of 1, Radiologist Re-Evaluation - Re-Evaluation First Eval Change: Improved - uknar gutter splint applied after wound sutured, n/m/c intact patient reports increase comfort --good pain and axiety relief with medications prior to suture and splinting Hand/Wrist Course/Dx - Course Course Of Treatment: ulnar gutter splint, suture repair, sling pain med, follow with ortho in 24 hours - Differential Dx/Diagnosis Provider Diagnoses: 2 cm laceration repair right 4/5 web space, oblique fracture 5th rith metacarpal, elevated blood pressure without history of hypertension - Physician Notifications Discussed Patient Care With: Anthony Foster Time Discussed With Above Provider: 12:00 Instructed by Provider To: Have Pt Call For Appt. Discharge - Sign-Out/Discharge Documenting (check all that apply): Discharge/Admit/Transfer - Discharge Plan Condition: Stable Disposition: HOME Prescriptions: Amoxicillin/Clavulanate TAB* [Augmentin TAB 875*] 875 mg PO BID #20 tab Hydrocodone/Acetaminophen [Hydrocodone-Acetamin 5-325 mg] 1 each PO Q4HR PRN # 20 tablet MDD 6 PRN Reason: Pain - Moderate To Severe Ibuprofen TAB* [Motrin TAB* 600 MG] 600 mg PO Q6H PRN #40 tab PRN Reason: Pain - Mild To Moderate Patient Education Materials: Care For Your Stitches (DC), Hypertension (ED), Boxer Fracture (ED), R.I.C.E. Treatment (ED) Forms: *Work Release Referrals: Tabby Borrego NP [Primary Care Provider] - 1 Week Anthony Foster MD [Medical Doctor] - 1 Day - Billing Disposition and Condition Condition: STABLE Disposition: HOME
[2018-04-21] MEDS ORDERED: Lidocaine 1% MPF* 2 ML VIAL INJ ONE (10:45)
[2018-04-21] MEDS ORDERED: LORazepam TAB(*) 1 MG PO ONE (12:00)
[2018-04-21] MEDS ORDERED: hydrOXYzine HCL TAB* 50 MG PO ONE (12:03)
[2018-04-21 13:31] VITALS: BP 145/83
== END 2018-04-21 13:24 | disposition home or self-care (01) ==
LOC: UCEAST 09:06
DX: S61.411A Laceration without foreign body of right hand, initial encounter (principal); S62.306A Unspecified fracture of fifth metacarpal bone, right hand, initial encounter for closed fracture; W01.198A Fall on same level from slipping, tripping and stumbling with subsequent striking against other object, initial encounter; Y93.9 Activity, unspecified; Y92.9 Unspecified place or not applicable; I10 Essential (primary) hypertension; K21.9 Gastro-esophageal reflux disease without esophagitis; Z88.1 Allergy status to other antibiotic agents; Z88.5 Allergy status to narcotic agent; F17.210 Nicotine dependence, cigarettes, uncomplicated
CPT/HCPCS: 12001; 99213; A9270-GY; G0463

== ENCOUNTER 2018-05-14 09:06 | Day surgery (SDC) | payer BC ==
[~2018-05-14 09:06] MED LIST: Buffered Lidocaine 0.9% SYRIN* 5 ML/SYR SYRINGE INTRADERM ONE
[2018-05-14] MEDS ORDERED: Buffered Lidocaine 0.9% SYRIN* 5 ML/SYR SYRINGE ONE (09:18)
[2018-05-14] MEDS ORDERED: PROCHLORPERAZINE INJ 5 MG/ML 2 ML VIAL IV PRN (10:31)
[2018-05-14] MEDS ORDERED: HYDROcodone/ACETAMIN 5-325 MG* 1 TAB PO PRN (10:31)
[2018-05-14] MEDS ORDERED: Naloxone* 0.4 MG/ML 1 ML VIAL IV PRN (10:31)
[2018-05-14] MEDS ORDERED: Nalbuphine* 20 MG/ML 1 ML VIAL IV PRN (10:31)
[2018-05-14] MEDS ORDERED: Levalbuterol 0.63MG/3ML NEB* UNIT OF USE INH PRN (10:31)
[2018-05-14] MEDS ORDERED: Ondansetron ODT TAB* 4 MG PO PRN (10:31)
[2018-05-14] MEDS ORDERED: DiMENhydriNATE IV* 50 MG/ML VIAL IV PUSH PRN (10:31)
[2018-05-14] MEDS ORDERED: Acetaminophen TAB* 325 MG PO PRN (10:31)
[2018-05-14] MEDS ORDERED: fentaNYL* 50 MCG/ML 2 ML VIAL (100 MCG VIAL) ONE ×2 (10:34→12:43)
[2018-05-14] MEDS ORDERED: Midazolam* 1 MG/ML 2 ML VIAL (2 MG) ONE (10:34)
[2018-05-14] MEDS ORDERED: Famotidine IV* 10 MG/ML 2 ML (20 mg) ONE (11:46)
[2018-05-14] MEDS ORDERED: Dexamethasone IV* 4 MG/ML 1 ML (4 MG) ONE (11:46)
[2018-05-14] MEDS ORDERED: Ketorolac INJ* 30 MG/ML 1 ML VIAL ONE (11:46)
[2018-05-14] MEDS ORDERED: Propofol* 10 MG/ML 20 ML BTL IV PUSH ONE (11:46)
[2018-05-14] MEDS ORDERED: Lidocaine 2% PF * 5 ML VIAL ONE (11:46)
[2018-05-14] MEDS ORDERED: oxyCODONE/Acetamin 5/325 MG* TAB ONE (12:43)
[2018-05-14] MEDS: fentaNYL* 50 MCG/ML 2 ML VIAL (100 MCG VIAL) IV PRN ×2 (12:44→13:02)
[2018-05-14 13:39] VITALS: BP 170/109
--- NOTE | 2018-05-16 22:55 | OP ---
DATE OF OPERATION: 05/14/18 - LOCATED WITHIN [facility] DATE OF : [birth year] SURGEON: Shobha Membreno MD ANESTHESIOLOGIST: Dr. Campa. ANESTHESIA: General endotracheal. PRE-OP DIAGNOSES: Menorrhagia and endometrial polyp. POST-OP DIAGNOSES: Menorrhagia and endometrial polyp. OPERATIVE PROCEDURE: Hysteroscopy, dilation and curettage, and MyoSure polypectomy. ESTIMATED BLOOD LOSS: 20 cc. URINE OUTPUT: 50 cc. IV FLUIDS: 900 cc lactated Ringer's. MATERIALS TO LAB: Endometrial curettings and polyp fragments. INDICATIONS: The patient was a 47-year-old 3, para 3, who presented to the office with report of progressively worsening periods. Ultrasound was significant for apparent endometrial polyp. She was extensively counseled for a hysteroscopy, D and C, and polypectomy. FINDINGS: Uterus with thick endometrium and at least 2 areas of polyps, which were resected without difficulty. Remainder of the cavity looked normal. COMPLICATIONS: None. DESCRIPTION OF PROCEDURE: The risks, benefits, and alternatives were described to the patient and informed consent was obtained. The patient was taken to the operating room with IV running where general anesthesia was induced and found to be adequate. The patient was prepped and draped in the normal sterile fashion in the high lithotomy position in [facility]. A time-out was performed. The bladder was emptied. A bivalved speculum was placed in the vagina and a single-tooth tenaculum was placed on the anterior cervix. The cervix was then gently dilated using Hanks and Hegar dilators. A MyoSure hysteroscope was then advanced through the cervix and into the uterine cavity without difficulty. Saline was managed using an Aquilex fluid management system. A MyoSure LITE device was then prepared and placed through the MyoSure scope and the visible polyps were removed without difficulty. Once that was complete, the hysteroscope was removed. A curettage was performed using a medium banjo curette with the curettings collected on Telfa. The tenaculum was then removed from the cervix and there was good hemostasis. The speculum was removed from the vagina and the patient was returned to the supine position. The patient tolerated the procedure well. Sponge, lap, and needle counts were correct x2. [id number]/[facility] #: [id number] [facility]
== END 2018-05-14 13:42 | disposition home or self-care (01) ==
LOC: OR 09:06
PROVIDERS: ATTEND Obstetrics & Gynecology
DX: N92.0 Excessive and frequent menstruation with regular cycle (principal); N84.0 Polyp of corpus uteri; D64.9 Anemia, unspecified; Z72.0 Tobacco use; I10 Essential (primary) hypertension; Z68.38 Body mass index [BMI] 38.0-38.9, adult; F41.9 Anxiety disorder, unspecified
CPT/HCPCS: 88305; A9270-GY; J1100; J1885; J2250; J2704; J3010

== ENCOUNTER 2018-09-09 19:08 | Emergency (ER) | payer BC ==
[2018-09-09 19:20] VITALS: BP 176/104
--- NOTE | 2018-09-09 19:36 | UC ---
Abdominal Pain Female HPI - HPI Summary HPI Summary: Pt presents with 4 days of vomiting and diarrhea. non bloody, non black. PT with sick contact with same. Pt states has intermittently had fevers and chills. no sore throat, ear pain.no abdominal pain. no rash. no moore, vision changes. Pt states feels very thirsty,but vomits whenever tries to eat/drink. No rash.no abdminal pain. Pt unable to work this week. 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 [facility] [place] [facility] [place] [facility] [place] [facility] [place] 1993 - Family History Known Family History: Positive: Other - negative ovarian and endometrium issues non contributory - Social History Occupation: Employed Full-time Lives: With Family Alcohol Use: Weekly Alcohol Amount: reports 5-6 drinks per week Substance Use Type: Marijuana Substance Use Comment - Amount & Last Used: reports 1 yr ago Smoking Status (MU): Light Every Day Tobacco Smoker Type: Cigarettes Amount Used/How Often: 1/2 ppd for 23 yrs (reports down to 5-6 cigs now) Length of Time of Smoking/Using Tobacco: 22 years Have You Smoked in the Last Year: Yes - Immunization History Most Recent Influenza Vaccination: 2009 Most Recent Tetanus Shot: upto date in past 5-7 years per patient Most Recent Pneumonia Vaccination: 2010 Review of Systems Constitutional: Fever, Chills, Fatigue Gastrointestinal: Abdominal Pain, Vomiting, Nausea All Other Systems Reviewed And Are Negative: Yes Physical Exam - Summary Physical Exam Summary: Vital Signs Reviewed: Yes A+Ox3, no distress, tired appearing, emesis x 1 in UC, Eyes: Conjunctiva Clear, LORNA. EOM intact and full ENT: Hearing grossly normal TM x 2 clear, mm pasty, lips dry, uvula midline, no exudate, no erythema Neck: Positive: Supple Respiratory: Positive: No respiratory distress, No accessory muscle use + CTA throughout no w/r Cardiovascular: RRR nl s1, s2 no m/r CBT <2 sec abd soft + BS nt/nd no guarding, no distension Musculoskeletal Exam: HANNON x 4 without difficulty Strength Intact, ROM Intact Neurological: Positive: Alert, + sensation throughout Psychological: Positive: Normal Response To Family Skin: Positive: no rash, no ecchymosis Triage Information Reviewed: Yes Vital Signs: Initial Vital Signs Temp 99.2 F 09/09/18 19:14 Pulse 75 09/09/18 19:14 Resp 18 09/09/18 19:14 BP 176/104 09/09/18 19:14 Pulse Ox 96 09/09/18 19:14 Re-Evaluation - Re-Evaluation First Eval Comment: repeated attempts- unable to place IV. Pt given zofran ODT - reports improved nauea. pt tolerating fluid and popsicle. abd remains soft. Will d/c with zofran. sips clear to bland. retun precautions. work note. pt's BP elevated - has been unable to take med - will resume Abd Pain Female Course/Dx - Course Course Of Treatment: Pt with several days n/v. no abdominal pain. intermittent fevers. VSS. On exam, pt appears dry. non concerning abdominal pain. Will attempt IV, zofran, hydrated - Differential Dx/Diagnosis Provider Diagnoses: nausea, vomiting. dehydration. elevated BP Discharge - Sign-Out/Discharge Documenting (check all that apply): Patient Departure All imaging exams completed and their final reports reviewed: No Studies - Discharge Plan Condition: Stable Disposition: HOME Prescriptions: Ondansetron ODT TAB* [Zofran 4 MG Odt TAB*] 4 mg PO Q6H PRN #8 tab.odt PRN Reason: Nausea Patient Education Materials: Acute Nausea and Vomiting (ED) Forms: *Gen. Provider Communication Referrals: Tabby Borrego NP [Primary Care Provider] - Additional Instructions: - For the first 8 hours, eat and drink clears (water, yonas justin, soup broth, jello, popsicles, Gatorade). If you tolerate this okay, add bland foods such as dry toast, scrambled eggs, crackers. Wait until you are feeling better for 24 hours before eating spicy food, acidic food, tomato based food, fried food. - take medication as prescribed for nausea - if you have persistent vomiting, develop pain, lightheadedness, or other concerns if it recommended you go to the emergency department for further evaluation and treatment - Billing Disposition and Condition Condition: STABLE Disposition: Home
[2018-09-09] MEDS ORDERED: NS 0.9% 1000 ML* 1,000 ML IV ONE (19:49)
[2018-09-09] MEDS ORDERED: Ondansetron INJ* 2 MG/ML VIAL IV ONE (19:49)
[2018-09-09] MEDS ORDERED: Ondansetron ODT TAB* 4 MG PO ONE ×2 (20:22→21:28)
== END 2018-09-09 21:45 | disposition home or self-care (01) ==
LOC: UCEAST 19:08
DX: R11.2 Nausea with vomiting, unspecified (principal); E86.0 Dehydration; I10 Essential (primary) hypertension; R50.9 Fever, unspecified; F17.210 Nicotine dependence, cigarettes, uncomplicated; Z88.5 Allergy status to narcotic agent
CPT/HCPCS: 99213; A9270-GY; G0463

== ENCOUNTER 2019-04-11 22:17 | Emergency (ER) | payer BC ==
[2019-04-11] MEDS ORDERED: NS 0.9% 1000 ML** 1,000 ML IV ONE (22:42)
--- NOTE | 2019-04-11 22:44 | ED ---
Substance Abuse/Use - HPI Summary HPI Summary: Pt is a 48 y/o female brought in by EMS who presents to the ED s/p overdose. As per , she took approximately five to seven 50 mg Atenolol pills around 19 :30. states she appeared to spit out some pills. Pt also drank roughly 6 shots of vodka. This was done in an attempt for self-harm. Pt has been depressed recently because her son went to nursing home several weeks ago. She states she is sometimes suicidal, but denies any HI. Pt denies any prior suicide attempt. As per EMS, her vital signs are stable. Vital signs while in room: BP 158/118, HR 67 bpm. PMHx HTN, COPD. - History Of Current Complaint Stated Complaint: OVERDOSE PER EMS Hx Obtained From: Patient, Family/Prosthodontist - , EMS Hx Last Menstrual Period: pcts Ingestion History: Type/Name Of Drug - 50 mg atenolol, Amount Ingested - 5-7 pills, Approximate Time Of Ingestion - 19:30 Overdose Characteristics: Oral Character: Depressed Aggravating Factor(s): Recent Stress Associated Signs And Symptoms: Intentional Ingestion - Allergies/Home Medications Allergies/Adverse Reactions: Allergies Allergy/AdvReac Type Severity Reaction Status Date / Time meperidine [From Demerol] Allergy Altered Verified 09/09/18 19:20 Mental Status ciprofloxacin AdvReac Severe Nausea And Verified 09/09/18 19:20 Vomiting bees Allergy Severe Anaphylatic Uncoded 09/09/18 19:20 Shock PMH/Surg Hx/FS Hx/Imm Hx Endocrine/Hematology History: Reports: Hx Thyroid Disease - parathyroid removed , Hx Anemia, Other Endocrine/Hematological Disorders - Parathyroidectomy Denies: Hx Diabetes, Hx Systemic Lupus Erythematosus, Hx Sickle Cell Disease Cardiovascular History: Reports: Hx Hypertension Denies: Hx Congestive Heart Failure, Other Cardiovascular Problems/Disorders Respiratory History: Reports: Hx Asthma Denies: Hx Chronic Obstructive Pulmonary Disease (COPD) GI History: Reports: Hx Gastroesophageal Reflux Disease, Hx Hiatal Hernia, Other GI Disorders - 2 weeks ago ruq pain " stabbing" ,us neg per pt,? hernia per pt Denies: Hx Ulcer History: Reports: Hx Kidney Stones, Hx Renal Disease - stones resolved, Other Problems/Disorders - menorrhagia, polyp Denies: Hx Dialysis Musculoskeletal History: Reports: Other Musculoskeletal History - chronic back muscle issues Denies: Hx Rheumatoid Arthritis, Hx Osteoporosis Sensory History: Denies: Hx Contacts or Glasses, Hx Hearing Aid Opthamlomology History: Denies: Hx Contacts or Glasses Neurological History: Reports: Hx Seizures - had seizure 25 yrs ago - saw neurologist, nothing found, no seizure since Denies: Other Neuro Impairments/Disorders Psychiatric History: Reports: Hx Anxiety, Hx Depression Denies: Hx Suicide Attempt - Cancer History Hx Chemotherapy: No Hx Radiation Therapy: No - Surgical History Surgery Procedure, Year, and Place: uterine polyp removed 05/17. tubal ligation 1998 - [facility] – [place]. cyst removed from throat - [facility] [place]. ureteral stent - [facility] [place]. Parathyroidectomy - [facility] [place]. wisdom teeth in dental office - 1993 Hx Anesthesia Reactions: No Infectious Disease History: No Infectious Disease History: Denies: Hx Clostridium Difficile, Hx Hepatitis, Hx Human Immunodeficiency Virus (HIV), Hx of Known/Suspected MRSA, Hx Shingles, Hx Tuberculosis, History Other Infectious Disease, Traveled Outside the [place] in Last 30 Days - Family History Known Family History: Positive: Other - negative ovarian and endometrium issues - Social History Alcohol Use: Weekly Alcohol Amount: reports 5-6 drinks per week Hx Substance Use: Yes Substance Use Type: Reports: Marijuana Substance Use Comment - Amount & Last Used: reports 1 yr ago Hx Tobacco Use: Yes Smoking Status (MU): Light Every Day Tobacco Smoker Type: Cigarettes Amount Used/How Often: 1/2 ppd for 23 yrs (reports down to 5-6 cigs now) Length of Time of Smoking/Using Tobacco: 22 years Have You Smoked in the Last Year: Yes Review of Systems Positive: Other - alcohol intoxication Positive: Depressed, Other - SI, NEGATIVE: HI All Other Systems Reviewed And Are Negative: Yes Physical Exam - Summary Physical Exam Summary: Appearance: well appearing, no pain distress, intoxicated Skin: warm, dry, reflects adequate perfusion, no other sign of self-injury Head/face: normal Eyes: EOMI, LORNA, injected conjunctiva ENT: mucous membranes moist Neck: supple, non-tender Respiratory: CTA, breath sounds present Cardiovascular: RRR, pulses symmetrical Abdomen: non-tender, soft Bowel Sounds: present Musculoskeletal: normal, strength/ROM intact Neuro: normal, sensory motor intact, A&Ox3 Psych: tearful Triage Information Reviewed: Yes Vital Signs On Initial Exam: Initial Vitals Temp Pulse Resp BP Pulse Ox 97.6 F 56 18 118/113 96 04/11/19 22:18 04/11/19 22:18 04/11/19 22:18 04/11/19 22:18 04/11/19 22:18 Vital Signs Reviewed: Yes Diagnostics - Vital Signs Vital Signs Temp Pulse Resp BP Pulse Ox 04/11/19 22:18 97.6 F 56 18 118/113 96 - Laboratory Result Diagrams: 04/11/19 22:46 04/11/19 22:46 Lab Statement: Any lab studies that have been ordered have been reviewed, and results considered in the medical decision making process. - EKG 22:19 Cardiac Rate: NL - 65 bpm EKG Rhythm: Sinus Rhythm ST Segment: Normal Summary of EKG Findings: Nl axis, nl intervals Re-Evaluation - Re-Evaluation First Eval Re-Evaluation Time: 22:50 Change: Unchanged Comment: is now in room. Second Eval Re-Evaluation Time: 04:29 Change: Unchanged Comment: Pt is medically cleared for a MHE. Course/Dx - Course Course Of Treatment: Nurse's notes reviewed. Patient presents with alcohol intoxication and overdose on atenolol. Patient received oral charcoal by recommendation of poison control and close telemetry monitoring. Patient never became bradycardic nor did she become hypertensive. She is observed over 6 hours and then cleared for mental health evaluation when she became sober. She is pending mental health evaluation and disposition at time of sign out to oncoming ER physician. - Diagnoses Differential Diagnosis/HQI/PQRI: Positive: Alcohol Abuse, Anxiety, Depression, Other - Beta vanessa overdose, mixed ingestion Provider Diagnoses: Suicide attempt by beta vanessa overdose, Depression - Physician Notifications Discussed Care Of Patient With: Poison Control Time Discussed With Above Provider: 22:30 Instructed by Provider To: Other - 6 hour observation, give charcoal. Give IV fluids for hypotension if needed. If pt becomes hypotensive and bradycardic give glucagon or high-dose insulin protocol. - Critical Care Time Critical Care Time: 30-74 min - CCT is EXCLUSIVE of separately billable procedures. Discharge - Sign-Out/Discharge Documenting (check all that apply): Sign-Out Patient Signing out patient TO: Anastacio Montejo Patient Received Moderate/Deep Sedation with Procedure: No - Discharge Plan Referrals: Tabby Borrego MANAGER OF DISTRIBUTION [Primary Care Provider] - - Attestation Statements Document Initiated by Scribe: Yes Documenting Scribe: Melissa Weinstein Provider For Whom Scribe is Documenting (Include Credential): Chester Ray MD Scribe Attestation: I, Melissa Weinstein, scribed for Chester Ray MD on 04/12/19 at 0632. Scribe Documentation Reviewed: Yes Provider Attestation: The documentation as recorded by the scribe, Melissa Weinstein accurately reflects the service I personally performed and the decisions made by me, Chester Ray MD Status of Scribe Document: Viewed
[2019-04-11] MEDS ORDERED: Charcoal ACTIVATED* 25 GM/120 ML BTL PO ONE ×2 (22:51→23:45)
[2019-04-11] MEDS ORDERED: Charcoal 50 GM/Sorbitol* 50 GM/240 ML BTL PO ONE (22:51)
[2019-04-11 22:53] LABS: ABS Basophils 0.1 10^3/ul (0-0.2); ABS Lymphocytes 2.2 10^3/ul (1.0-4.8); ABS Monocytes 0.6 10^3/ul (0-0.8); ABS Neutrophils 3.4 10^3/ul (1.5-7.7); Eosinophil % 0.7 %; Hematocrit 47 % (35-47); Hemoglobin 15.4 g/dL (12.0-16.0); Lymphocyte % 34.8 %; Mean Corpuscular HGB Conc 33 g/dL (31-36); Mean Corpuscular Hemoglobin 33 pg (27-31); Mean Corpuscular Volume 102 fL (80-97); Mean Platelet Volume 8.1 fL (7.4-10.4); Nucleated Red Blood Cells % 0.1; Platelet Count 256 10^3/uL (150-450); Red Cell Distribution Width 15 % (10.5-15); White Blood Count 6.3 10^3/uL (3.5-10.8)
[2019-04-11 23:10] LABS: ALT 30 U/L (7-52); AST 59 U/L (13-39); Albumin 4.1 g/dL (3.2-5.2); Albumin/Globulin Ratio 1.3 (1-3); Alkaline Phosphatase 85 U/L (34-104); BUN/Creatinine Ratio 10.6 (8-20); Blood Urea Nitrogen 7 mg/dL (6-24); CO2 Carbon Dioxide 30 mmol/L (22-32); Calcium 8.9 mg/dL (8.6-10.3); Chloride 108 mmol/L (101-111); EGFR African American 115.7 (>60); EGFR Non-African American 95.6 (>60); Globulin 3.2 g/dL (2-4); Glucose 98 mg/dL (70-100); Potassium 3.4 mmol/L (3.5-5.0); Total Protein 7.3 g/dL (6.4-8.9)
[2019-04-11 23:16] LABS: HCG Pregnancy < 0.60 mIU/mL
[2019-04-11 23:17] LABS: Anion Gap 8 mmol/L (2-11); Sodium 146 mmol/L (135-145)
[2019-04-11] MEDS ORDERED: Charcoal ACTIVATED* 25 GM/120 ML BTL ONE (23:27)
[2019-04-11 23:28] LABS: Acetaminophen < 15 mcg/mL; Alcohol 205 mg/dL (<10); Salicylate < 2.50 mg/dL (<30)
[2019-04-11 23:43] LABS: TSH (Thyroid Stimulating Horm) 1.64 mcIU/mL (0.34-5.60)
[2019-04-12] MEDS ORDERED: Ondansetron INJ* 2 MG/ML VIAL IV ONE (00:57)
[2019-04-12] MEDS ORDERED: Ondansetron INJ* 2 MG/ML VIAL ONE (01:01)
--- NOTE | 2019-04-12 07:04 | ED ---
Progress - Progress Note Progress Note: Pt is a signout from Dr. Ray pending MHE. As of 1041, the pt can be discharged with a dx of alcohol induced mood disorder as per Dr. Jacobs, with a referral to [facility]. - Results/Orders Results/Orders: EKG at 0705 shows NSR at 61 bpm with no STEMI and no acute changes. Course/Dx - Diagnoses Provider Diagnoses: Alcohol-induced mood disorder - Critical Care Time Critical Care Time: 30-74 min - CCT is EXCLUSIVE of separately billable procedures. Discharge - Sign-Out/Discharge Documenting (check all that apply): Patient Departure, Receiving Sign-Out Receiving patient FROM: Chester Ray Patient Received Moderate/Deep Sedation with Procedure: No - Discharge Plan Condition: Stable Disposition: HOME Referrals: Tabby Borrego NP [Primary Care Provider] - [facility] - Residential Facility [Outside] - Billing Disposition and Condition Condition: STABLE Disposition: Home - Attestation Statements Document Initiated by Scribe: Yes Documenting Scribe: Smita Stevens Provider For Whom Ronnell is Documenting (Include Credential): Anastacio Montejo MD. Scribe Attestation: Smita Castillo, scribed for Anastacio Montejo MD. on 04/12/19 at 1108. Scribe Documentation Reviewed: Yes Provider Attestation: The documentation as recorded by the Smita ayers accurately reflects the service I personally performed and the decisions made by , Anastacio Montejo MD. Status of Scribe Document: Viewed
[2019-04-12 11:40] VITALS: BP 152/86
== END 2019-04-12 11:39 | disposition home or self-care (01) ==
LOC: ED 22:17
DX: T44.7X2A Poisoning by beta-adrenoreceptor antagonists, intentional self-harm, initial encounter (principal); F10.14 Alcohol abuse with alcohol-induced mood disorder; I10 Essential (primary) hypertension; J44.9 Chronic obstructive pulmonary disease, unspecified; K21.9 Gastro-esophageal reflux disease without esophagitis; Z87.442 Personal history of urinary calculi; F17.210 Nicotine dependence, cigarettes, uncomplicated; Y92.9 Unspecified place or not applicable; F32.9 Major depressive disorder, single episode, unspecified
CPT/HCPCS: 36415; 80053; 80320; 80329; 83605; 84443; 84702; 85025; 93005; 96361; 96374; 99285; A9270-GY; G0480; J2405

== ENCOUNTER 2021-12-19 19:07 | Inpatient (IN) ==
[2021-12-19 20:48] LABS: Hematocrit 29 % (35-47); Hemoglobin 8.2 g/dL (12.0-16.0); Mean Corpuscular HGB Conc 28 g/dL (31-36); Mean Corpuscular Hemoglobin 19 pg (27-31); Mean Corpuscular Volume 66 fL (80-97); Mean Platelet Volume 8.6 fL (7.4-10.4); Platelet Count 372 10^3/uL (150-450); Red Blood Count 4.44 10^6 /uL (3.70-4.87); Red Cell Distribution Width 23 % (10-15); White Blood Count 7.9 10^3/uL (3.5-10.8)
[2021-12-19 21:00] LABS: ALT 10 U/L (7-52); AST 15 U/L (13-39); Albumin/Globulin Ratio 1.1 (1-3); Alkaline Phosphatase 103 U/L (35-149); Anion Gap 5 mmol/L (2-11); Blood Urea Nitrogen 12 mg/dL (6-24); CO2 Carbon Dioxide 36 mmol/L (22-32); Calcium 8.6 mg/dL (8.6-10.3); Chloride 100 mmol/L (101-111); Globulin 3.7 g/dL (2-4); Glucose 113 mg/dL (70-100); Potassium 3.2 mmol/L (3.5-5.0); Sodium 141 mmol/L (135-145); Total Protein 7.7 g/dL (6.4-8.9); eGFR CKD-EPI 102.9 (>60)
[2021-12-19 21:06] LABS: Troponin I 0.07 ng/mL (<0.03)
[2021-12-19 21:35] LABS: Anisocytosis 1+; Hypochromasia 2+; Microcytosis 3+
[2021-12-19 21:36] LABS: Stomatocytes 3+
[2021-12-19 21:37] LABS: ABS Basophils 0.1 10^3/ul (0-0.2); ABS Lymphocytes 1.1 10^3/ul (1.0-4.8); ABS Monocytes 0.6 10^3/ul (0-0.8); ABS Neutrophils 5.9 10^3/ul (1.5-7.7); ABS Nucleated RBC 0.1 10^3/ul; Eosinophil % 0.6 %; Lymphocyte % 14.2 %; Nucleated Red Blood Cells % 0.9
[2021-12-19] MEDS ORDERED: Potassium Chlor 20 meq TAB.ER PO ONE (21:45)
[2021-12-20] MEDS ORDERED: Potassium Chlor 20 meq TAB.ER PO ONE (00:15)
[2021-12-20] MEDS: Enoxaparin 40 MG/0.4 ML SYR SUBCUT SCH ×2 (00:50→20:21)
[2021-12-20] MEDS: Furosemide 40 mg/4 ml IV VIAL IV SCH ×2 (01:10→08:20)
[2021-12-20 01:33] LABS: Troponin I 0.07 ng/mL (<0.03)
[2021-12-20 03:56] LABS: Ferritin 3.6 ng/mL (11-307)
[2021-12-20 04:00] LABS: Folate > 20.00 ng/mL (5.90-24.80)
[2021-12-20 04:01] LABS: Vitamin B12 241 pg/mL (180-914)
[2021-12-20] MEDS: Mometasone/Formoter 200/5 MDI INH SCH ×2 (07:06→19:23)
[2021-12-20] MEDS ORDERED: Iron Sucrose 200 MG in NS 0.9% 100 ml BAG 100 ML IVPB ONE (10:11)
[2021-12-21 06:58] LABS: Albumin 3.6 g/dL (3.2-5.2); Calcium 8.7 mg/dL (8.6-10.3); Globulin 3.6 g/dL (2-4); HDL Cholesterol 19.7 mg/dL; Magnesium 1.9 mg/dL (1.9-2.7); Potassium 3.1 mmol/L (3.5-5.0); Total Bilirubin 0.5 mg/dL (0.2-1.0); Total Protein 7.2 g/dL (6.4-8.9); eGFR CKD-EPI 99.5 (>60)
[2021-12-21 07:11] LABS: ABS Eosinophils 0.1 10^3/ul (0-0.6); ABS Lymphocytes 1.4 10^3/ul (1.0-4.8); ABS Monocytes 0.8 10^3/ul (0-0.8); ABS Neutrophils 6.6 10^3/ul (1.5-7.7); ABS Nucleated RBC 0.2 10^3/ul; Eosinophil % 0.8 %; Hematocrit 30 % (35-47); Lymphocyte % 15.8 %; Mean Corpuscular HGB Conc 27 g/dL (31-36); Mean Corpuscular Hemoglobin 18 pg (27-31); Mean Corpuscular Volume 66 fL (80-97); Mean Platelet Volume 8.6 fL (7.4-10.4); Platelet Count 381 10^3/uL (150-450); Red Cell Distribution Width 23 % (10-15); White Blood Count 8.9 10^3/uL (3.5-10.8)
[2021-12-21] MEDS: Mometasone/Formoter 200/5 MDI INH SCH ×2 (07:18→19:30)
[2021-12-21] MEDS ORDERED: Potassium Chlor 20 meq TAB.ER PO ONE ×2 (07:26→13:00)
[2021-12-21 07:40] LABS: Microcytosis 3+; Polychromasia 1+
[2021-12-21 07:41] LABS: Hypochromasia 2+
[2021-12-21] MEDS: Furosemide 40 mg/4 ml IV VIAL IV SCH (08:27)
[2021-12-21] MEDS ORDERED: Iron Sucrose 20 MG/ML 5 ML VIAL IV PUSH ONE (10:19)
[2021-12-21] MEDS: Albuterol HFA INHALER 8 gm MDI INH PRN (12:22)
[2021-12-21 15:18] LABS: % Iron Saturation 4 % (14 - 50); Total Iron Binding Capacity 530 mcg/dL (250 - 400)
[2021-12-21 17:03] LABS: Calcium 9.3 mg/dL (8.6-10.3); Potassium 3.8 mmol/L (3.5-5.0); eGFR CKD-EPI 101.2 (>60)
[2021-12-21] MEDS: Enoxaparin 40 MG/0.4 ML SYR SUBCUT SCH (21:32)
[2021-12-22] MEDS ORDERED: Senna TAB 8.6 mg TAB PO PRN (04:05)
[2021-12-22] MEDS: Polyethylene Glycol 3350 17 GM PACKET PO PRN (04:24)
[2021-12-22 05:12] LABS: Calcium 9.1 mg/dL (8.6-10.3); Magnesium 1.9 mg/dL (1.9-2.7); Potassium 3.2 mmol/L (3.5-5.0); eGFR CKD-EPI 102.9 (>60)
[2021-12-22] MEDS: Furosemide 40 mg/4 ml IV VIAL IV SCH (05:18)
[2021-12-22] MEDS: Mometasone/Formoter 200/5 MDI INH SCH ×2 (07:34→18:53)
[2021-12-22] MEDS ORDERED: Potassium Chlor 10 meq TAB PO ONE (07:45)
[2021-12-22] MEDS: Iron Sucrose 200 MG in NS 0.9% 100 ml BAG 100 ML IVPB SCH (09:21)
[2021-12-22] MEDS: Enoxaparin 40 MG/0.4 ML SYR SUBCUT SCH ×2 (09:29→20:38)
[2021-12-22] MEDS ORDERED: Magnesium Sulfate IV 1GM/100ML 1 GM/100 ML BAG IV ONE (11:03)
[2021-12-23] MEDS: Albuterol HFA INHALER 8 gm MDI INH PRN (03:38)
[2021-12-23] MEDS: Furosemide 40 mg/4 ml IV VIAL IV SCH (04:28)
[2021-12-23 07:35] LABS: Calcium 9.1 mg/dL (8.6-10.3); Potassium 3.2 mmol/L (3.5-5.0); eGFR CKD-EPI 104.6 (>60)
[2021-12-23 07:41] LABS: ABS Basophils 0.1 10^3/ul (0-0.2); ABS Eosinophils 0.1 10^3/ul (0-0.6); ABS Lymphocytes 1.6 10^3/ul (1.0-4.8); ABS Monocytes 0.9 10^3/ul (0-0.8); ABS Neutrophils 9.6 10^3/ul (1.5-7.7); ABS Nucleated RBC 0.5 10^3/ul; Eosinophil % 1.2 %; Hematocrit 33 % (35-47); Hemoglobin 8.7 g/dL (12.0-16.0); Lymphocyte % 13.3 %; Mean Corpuscular HGB Conc 27 g/dL (31-36); Mean Corpuscular Hemoglobin 18 pg (27-31); Mean Corpuscular Volume 69 fL (80-97); Mean Platelet Volume 8.4 fL (7.4-10.4); Platelet Count 429 10^3/uL (150-450); Red Blood Count 4.73 10^6 /uL (3.70-4.87); Red Cell Distribution Width 22 % (10-15); White Blood Count 12.4 10^3/uL (3.5-10.8)
[2021-12-23] MEDS ORDERED: Potassium Chlor 20 meq TAB.ER PO ONE (08:11)
[2021-12-23] MEDS: Iron Sucrose 200 MG in NS 0.9% 100 ml BAG 100 ML IVPB SCH (08:20)
[2021-12-23] MEDS: Mometasone/Formoter 200/5 MDI INH SCH ×2 (08:20→19:17)
[2021-12-23] MEDS: Enoxaparin 40 MG/0.4 ML SYR SUBCUT SCH ×2 (08:34→20:24)
[2021-12-24 06:30] LABS: ABS Eosinophils 0.2 10^3/ul (0-0.6); ABS Lymphocytes 1.5 10^3/ul (1.0-4.8); ABS Neutrophils 8.6 10^3/ul (1.5-7.7); ABS Nucleated RBC 0.3 10^3/ul; Eosinophil % 1.3 %; Hematocrit 32 % (35-47); Hemoglobin 8.6 g/dL (12.0-16.0); Lymphocyte % 13.7 %; Mean Corpuscular HGB Conc 27 g/dL (31-36); Mean Corpuscular Hemoglobin 19 pg (27-31); Mean Corpuscular Volume 70 fL (80-97); Mean Platelet Volume 8.5 fL (7.4-10.4); Nucleated Red Blood Cells % 2.6; Platelet Count 414 10^3/uL (150-450); Red Blood Count 4.61 10^6 /uL (3.70-4.87); Red Cell Distribution Width 23 % (10-15); White Blood Count 11.3 10^3/uL (3.5-10.8)
[2021-12-24 06:44] LABS: Calcium 9.1 mg/dL (8.6-10.3); Potassium 3.6 mmol/L (3.5-5.0); eGFR CKD-EPI 106.5 (>60)
[2021-12-24] MEDS: Iron Sucrose 200 MG in NS 0.9% 100 ml BAG 100 ML IVPB SCH (07:49)
[2021-12-24] MEDS: Albuterol HFA INHALER 8 gm MDI INH PRN (07:49)
[2021-12-24] MEDS: Mometasone/Formoter 200/5 MDI INH SCH ×2 (07:49→20:26)
[2021-12-24] MEDS: Enoxaparin 40 MG/0.4 ML SYR SUBCUT SCH (07:53)
[2021-12-24] MEDS ORDERED: Iohexol 350 (CONTRAST) 500 ML MDV IV ONE (15:22)
[2021-12-24] MEDS ORDERED: PEG 3000 GI LAVAGE 1 GALLON PO ONE (17:00)
[2021-12-25 07:01] LABS: ABS Eosinophils 0.1 10^3/ul (0-0.6); ABS Lymphocytes 1.1 10^3/ul (1.0-4.8); ABS Monocytes 0.6 10^3/ul (0-0.8); ABS Neutrophils 6.1 10^3/ul (1.5-7.7); ABS Nucleated RBC 0.1 10^3/ul; Eosinophil % 1.6 %; Hematocrit 33 % (35-47); Hemoglobin 8.9 g/dL (12.0-16.0); Lymphocyte % 14.3 %; Mean Corpuscular HGB Conc 27 g/dL (31-36); Mean Corpuscular Hemoglobin 19 pg (27-31); Mean Corpuscular Volume 72 fL (80-97); Mean Platelet Volume 8.7 fL (7.4-10.4); Nucleated Red Blood Cells % 1.2; Platelet Count 408 10^3/uL (150-450); Red Blood Count 4.56 10^6 /uL (3.70-4.87); Red Cell Distribution Width 23 % (10-15)
[2021-12-25 07:09] LABS: Magnesium 2.2 mg/dL (1.9-2.7); Potassium 3.3 mmol/L (3.5-5.0); eGFR CKD-EPI 106.9 (>60)
[2021-12-25] MEDS: Mometasone/Formoter 200/5 MDI INH SCH ×2 (07:51→19:15)
[2021-12-25] MEDS: KCL 20 MEQ/100 ML IVPREMIX 20 MEQ/100 ML BAG IV SCH ×2 (08:52→11:19)
[2021-12-25] MEDS: Polyethylene Glycol 3350 17 GM PACKET PO PRN (09:36)
[2021-12-25] MEDS ORDERED: Propofol 10 MG/ML 20 ML BTL ONE (13:12)
[2021-12-25] MEDS ORDERED: Lidocaine 2% PF 5 ML VIAL ONE (13:12)
[2021-12-25] MEDS ORDERED: Succinylcholine 200 mg VIAL 20 mg/ml 10 ml VIAL (200 mg) ONE (14:03)
[2021-12-25] MEDS ORDERED: Dexamethasone IV 4 MG/ML VIAL 1 ml VIAL ONE (14:46)
[2021-12-25] MEDS ORDERED: Ondansetron 4 mg VIAL 2 MG/ML 2 ml VIAL ONE (14:46)
[2021-12-25] MEDS ORDERED: Ondansetron 4 mg VIAL 2 MG/ML 2 ml VIAL IV PRN (15:19)
[2021-12-25] MEDS ORDERED: Naloxone 0.4 mg VIAL 0.4 mg/ml 1 ml VIAL IV PRN (15:19)
[2021-12-26 06:37] LABS: Calcium 9.2 mg/dL (8.6-10.3); Magnesium 2.1 mg/dL (1.9-2.7); Potassium 4.1 mmol/L (3.5-5.0); eGFR CKD-EPI 106.1 (>60)
[2021-12-26] MEDS: Mometasone/Formoter 200/5 MDI INH SCH ×2 (07:09→20:20)
[2021-12-26 07:10] LABS: Mean Platelet Volume 8.4 fL (7.4-10.4)
[2021-12-26 07:11] LABS: Hematocrit 32 % (35-47); Hemoglobin 8.5 g/dL (12.0-16.0); Mean Corpuscular HGB Conc 26 g/dL (31-36); Mean Corpuscular Hemoglobin 20 pg (27-31); Mean Corpuscular Volume 74 fL (80-97); Platelet Count 376 10^3/uL (150-450); Red Blood Count 4.35 10^6 /uL (3.70-4.87); Red Cell Distribution Width 23 % (10-15); White Blood Count 9.3 10^3/uL (3.5-10.8)
[2021-12-26 08:21] LABS: ABS Monocytes 0.5 10^3/ul (0-0.8); ABS Neutrophils 7.8 10^3/ul (1.5-7.7); ABS Nucleated RBC 0.1 10^3/ul; Anisocytosis 3+; Hypochromasia 3+; Lymphocyte % 10.4 %; Microcytosis 2+; Nucleated Red Blood Cells % 0.9; Polychromasia 2+
[2021-12-26 10:38] LABS: PCO2 Arterial 68 mmHg (35-45)
[2021-12-26 10:46] LABS: PO2 Arterial 51 mmHg (80-100)
[2021-12-27 06:17] LABS: ABS Basophils 0.1 10^3/ul (0-0.2); ABS Eosinophils 0.1 10^3/ul (0-0.6); ABS Lymphocytes 1.3 10^3/ul (1.0-4.8); ABS Monocytes 0.6 10^3/ul (0-0.8); ABS Neutrophils 5.8 10^3/ul (1.5-7.7); Eosinophil % 0.7 %; Hematocrit 33 % (35-47); Hemoglobin 8.8 g/dL (12.0-16.0); Lymphocyte % 16.8 %; Mean Corpuscular HGB Conc 27 g/dL (31-36); Mean Corpuscular Hemoglobin 20 pg (27-31); Mean Corpuscular Volume 74 fL (80-97); Mean Platelet Volume 8.2 fL (7.4-10.4); Nucleated Red Blood Cells % 0.3; Platelet Count 338 10^3/uL (150-450); Red Blood Count 4.44 10^6 /uL (3.70-4.87); Red Cell Distribution Width 23 % (10-15); White Blood Count 7.9 10^3/uL (3.5-10.8)
[2021-12-27 06:28] LABS: Anion Gap 4 mmol/L (2-11); Blood Urea Nitrogen 11 mg/dL (6-24); CO2 Carbon Dioxide 39 mmol/L (22-32); Calcium 9.1 mg/dL (8.6-10.3); Chloride 96 mmol/L (101-111); Glucose 95 mg/dL (70-100); Potassium 3.9 mmol/L (3.5-5.0); Sodium 139 mmol/L (135-145); eGFR CKD-EPI 94.8 (>60)
[2021-12-27] MEDS: Mometasone/Formoter 200/5 MDI INH SCH (07:16)
[2021-12-27 09:11] LABS: ALT 11 U/L (7-52); AST 18 U/L (13-39); Albumin 3.8 g/dL (3.2-5.2); Albumin/Globulin Ratio 1.1 (1-3); Alkaline Phosphatase 79 U/L (35-149); Globulin 3.4 g/dL (2-4); Total Protein 7.2 g/dL (6.4-8.9)
[2021-12-27] MEDS ORDERED: Iohexol 300 (CONTRAST) 10 ML SDV IV ONE (14:45)
[2021-12-27 15:41] LABS: Lipase 34 U/L (11.0-82.0)
[2021-12-27 18:24] VITALS: BP 127/65
== END 2021-12-27 19:15 | disposition home or self-care (01) | DRG 194 ==
LOC: ED 19:07 → SUATTDRO 12-20 00:11 → EDHOLD 12-20 00:11 → MED 12-20 02:27
PROVIDERS: ADMIT Student in an Organized Health Care Education/Training Program; ATTEND Internal Medicine